=== PATIENT | male | born 1975 | race Caucasian/White ===

== ENCOUNTER 2020-06-10 15:54 | Outpatient (CLI) | payer OTHER, SELFPAY ==
--- NOTE | ~2020-06-10 | XR_ITS ---
XR hip RT min 2V 06/10/2020 16:17 Indication: Acute right hip pain Procedure: 2 views right hip Comparison: No prior studies for comparison. Findings: There is mild osteoarthritis of the right hip. No acute fracture or traumatic malalignment. No significant soft tissue abnormality. No radiopaque foreign bodies. Impression: 1: Mild osteoarthritis of the right hip. Reviewed, dictated and finalized at location B. Impression: 1: Mild osteoarthritis of the right hip.
== END 2020-06-10 15:55 | disposition home or self-care (01) ==
LOC: CHSIMG 16:00
PROVIDERS: PCP Family Medicine; Visit Provider Family Medicine
DX: M25.551 Pain in right hip (principal)
CPT/HCPCS: 73502

== ENCOUNTER 2021-03-31 16:33 | Emergency (ER) | payer OTHER, SELFPAY ==
--- NOTE | ~2021-03-31 | XR_ITS ---
XR soft tissue neck 03/31/2021 17:27 Indication: Neck swelling Procedure: 3 views of the neck soft tissues Comparison: No prior studies for comparison. Findings: No prevertebral soft tissue abnormality. No abnormality of the epiglottis or aryepiglottic folds. No subglottic narrowing. Lung apices are normal. Impression: 1: No significant neck soft tissue abnormality. Reviewed, dictated and finalized at location A. Impression: 1: No significant neck soft tissue abnormality.
[2021-03-31 16:50] VITALS: BP 148/103; PULSE 112; RESP 20; TEMP 36.9; O2SAT 97
--- NOTE | 2021-03-31 17:49 | ED.GENADULT ---
HPI - General Adult General Chief complaint: Unspecified Stated complaint: throat swelling Source: patient History of Present Illness HPI narrative: this is a 45-year-old gentleman with a history of anxiety and depression presents with a sensation of fullness in his throat and neck mainly on the exterior his anterior portion of his neck, the patient did go to a urgent care clinic and was prescribed prednisone, there is no difficulty swallowing no shortness of breath no difficulty swallowing and is airway with no wheezing no audible wheezing no fever chills nausea vomiting no sore throat. Onset (ago): day(s) Location: mouth ( throat) Radiation: neck Relieving factors: none Exacerbating factors: none Associated symptoms: denies other symptoms Related Data Home Medications Medication Instructions Recorded Confirmed alprazolam 0.5 mg tablet 0.5 mg PO DAILY 02/04/20 armodafinil 150 mg tablet 150 mg PO QAM 02/04/20 venlafaxine 150 mg 150 mg PO DAILY 02/04/20 capsule,extended release 24 hr zolpidem 12.5 mg tablet,extended 12.5 mg PO DAILY tablet 02/04/20 release,multiphase Vibrid 30 mg PO DAILY 03/31/21 03/31/21 lithium carbonate 150 mg PO DAILY 03/31/21 03/31/21 Allergies Allergy/AdvReac Type Severity Reaction Status Date / Time No Known Allergies Allergy Verified 04/06/20 09:31 Review of Systems Review of Systems: All systems reviewed & are unremarkable except as noted in HPI and below PMFSH Past Medical History Medical History (Updated 03/31/21 @ 17:54 by Darian Brar MD) Depression Diverticulosis 07/2017 BRAAYN (generalized anxiety disorder) HTN (hypertension) Low back pain Obesity, morbid, BMI 40.0-49.9 Surgical History Surgical History Hx of tonsillectomy Social History Social History Smoking status: Never smoker Tobacco type: cigarettes Alcohol intake: never Substance use: never Substance use type: does not use Gender identity (if verbalized by the patient): Male Exam Const: General: cooperative, healthy appearing, comfortable, no acute distress, well developed, alert, awake and Physically active HENMT: Head: normal to inspection Ears: hearing grossly normal bilaterally General nose exam: Normal external nose present Face and sinus: normal facial exam Mouth: Yes Normal oral and palatal mucosa present, Yes lip normal, Yes tongue normal, Yes oropharynx normal and Yes moist mucous membranes Throat: posterior oropharynx normal, tonsils normal and uvula midline Eyes: General: appearance normal, both eyes and all related structures Neck: Neck: normal visual inspection, full ROM, no lymphadenopathy and no meningeal signs Resp: Effort & Inspection: normal respiratory effort and able to speak in complete sentences Cardio: Jugular venous distension: no JVD Palpation: normal PMI Rate: regular rate Rhythm: regular rhythm GI: Inspection: normal to inspection Auscultation: normal bowel sounds Skin: General skin exam: normal color and no rashes or lesions noted Neuro: General: oriented to person, oriented to place and oriented to time Psych: Appearance: grossly normal and well kempt Mental Status: mental status grossly normal Course Course Emergency Course: Reviewed x-ray findings with patient which were normal and gave patient reassessed reassurance and advised to follow-up with his primary care physician if the sensation persists. Vital Signs Vital signs: Vital Signs Temperature 36.9 C 03/31/21 16:50 Pulse Rate 112 H 03/31/21 16:50 Respiratory Rate 20 03/31/21 16:50 Blood Pressure 148/103 H 03/31/21 16:50 Pulse Oximetry 97 03/31/21 16:50 Temperature 36.9 C 03/31/21 16:50 Pulse Rate 112 H 03/31/21 16:50 Respiratory Rate 20 03/31/21 16:50 Blood Pressure 148/103 H 03/31/21 16:50 Pulse Oximetry 97 03/31/21 16:50 Medi
[2021-03-31 18:15] VITALS: BP 106/103; PULSE 103; RESP 20; O2SAT 98
== END 2021-03-31 18:17 | disposition home or self-care (01) ==
PROVIDERS: Emergency Provider Emergency Medicine; PCP Family Medicine
DX: R09.89 Other specified symptoms and signs involving the circulatory and respiratory systems (principal)
CPT/HCPCS: 70360; 99282; 99283

== ENCOUNTER 2022-12-27 21:42 | Emergency (ER) | payer OTHER, SELFPAY ==
[2022-12-27 21:51] VITALS: BP 163/99; PULSE 98; RESP 20; TEMP 36.6; O2SAT 100
--- NOTE | 2022-12-27 22:15 | ED.URI ---
HPI - URI/Sore Throat General Chief Complaint: Upper Respiratory Infection Stated Complaint: covid Source: patient Mode of arrival: ambulatory Limitations: no limitations History of Present Illness HPI Narrative: 47-year-old male with obesity, generalized anxiety disorder, depression, GERD, diverticulosis, hypertension, chronic low back pain presents to the ER with a 1 day history of -- sore throat -- nasal congestion -- right eye redness -- nonproductive cough -- nausea with multiple episodes of diarrhea. No abdominal pain. No vomiting. -- Fever with chills. Patient did home COVID test today which came back positive. He presents to the ER to get back Paxlovid. The patient had 3 doses of COVID vaccination the last of which was more than 1 year ago. MD elicited complaint: fever, cough, sore throat and nasal congestion Onset (ago): day(s) ( Symptoms started yesterday.) Consistency: constant Severity: moderate Description of mucous: watery Able to tolerate fluids by mouth: Yes Exacerbating factors: nothing Relieving factors: nothing Associated symptoms: fever, chills, nasal congestion, sore throat, cough, nausea and diarrhea Related Data Home Medications Medication Instructions Recorded Confirmed alprazolam 0.5 mg tablet (Xanax) 0.5 mg PO DAILY 02/04/20 03/31/21 armodafinil 150 mg tablet (Nuvigil) 250 mg PO QAM 02/04/20 03/31/21 venlafaxine 150 mg 150 mg PO DAILY 02/04/20 03/31/21 capsule,extended release 24 hr (Effexor XR) zolpidem 12.5 mg tablet,extended 12.5 mg PO DAILY 02/04/20 03/31/21 release,multiphase (Ambien CR) Vibrid 30 mg PO DAILY 03/31/21 03/31/21 lithium carbonate 150 mg capsule 150 mg PO DAILY 03/31/21 03/31/21 Allergies Allergy/AdvReac Type Severity Reaction Status Date / Time No Known Allergies Allergy Verified 04/06/20 09:31 Review of Systems Review of Systems: All systems reviewed & are unremarkable except as noted in HPI and below Constitutional: Constitutional: Reports as per HPI and Reports no additional constitutional complaints Eyes: Comments: Right eye is erythematous without any discharge. No pain. ENT: Reports system reviewed and no additional complaints, except as documented and Reports as per HPI Cardiovascular: Cardiovascular: Reports as per HPI and Reports no additional cardiovascular complaints Respiratory: Respiratory: Reports as per HPI, Reports no additional respiratory complaints and Reports cough Gastrointestinal: Gastrointestinal: Reports as per HPI, Reports no additional gastrointestinal complaints, Reports diarrhea and Reports nausea Genitourinary: Genitourinary: Reports no additional male genitourinary complaints and Reports as per HPI Musculoskeletal: Musculoskeletal: Reports no additional musculoskeletal complaints and Reports as per HPI Integumentary/Breasts: Skin/Breast: Reports system reviewed and no additional complaints, except as docu and Reports as per HPI Neurologic: Reports system reviewed and no additional complaints, except as documented and Reports as per HPI Psychiatric: Psychiatric: Reports no additional psychiatric complaints, Reports as per HPI, Reports anxiety and Reports depression Endocrine: Endocrine: Reports no additional endocrine complaints and Reports as per HPI Hematologic/Lymphatic: Hematologic/Lymphatic: Reports no additional hematologic/lymphatic complaints and Reports as per HPI Allergic/Immunologic: Allergic/Immunologic: Reports no additional allergic/immunologic complaints and Reports as per HPI PMFSH Past Medical History Medical History (Updated 12/27/22 @ 23:25 by Kobi Riggs MD) Depression Diverticulosis 07/2017 BRAYAN (generalized anxiety disorder) HTN (hypertension) Low back pain Obesity, morbid, BMI 40.0-49.9 Surgical History Surgical History Hx of tonsillectomy Social History Social History (Reviewed 12/27/22 @ 22:37 by Kobi Fitzgerald
[2022-12-27 22:44] LABS: Basophils Absolute Auto 0.04 K/mm3 (0.00-0.10); Basophils Percent Auto 0.5 % (0.0-1.0); Eosinophils Absolute Auto 0.24 K/mm3 (0.02-0.50); Eosinophils Percent Auto 3.2 % (1.0-6.0); Hematocrit 42.2 % (40.0-54.0); Hemoglobin 14.4 g/dL (14.0-18.0); Immature Granulocyte Absolute 0.05 K/mm3 (0.00-0.00); Immature Granulocyte Percent A 0.7 % (0.0-0.0); Lymphocytes Absolute Auto 1.88 K/mm3 (1.10-4.50); Lymphocytes Percent Auto 25.1 % (18.0-42.0); Mean Corpuscular HGB Conc 34.1 g/dL (32.0-36.0); Mean Corpuscular Hemoglobin 31.4 pg (27.0-31.0); Mean Corpuscular Volume 92.1 fL (78.0-102.0); Mean Platelet Volume 9.6 fl (8.7-11.0); Monocytes Absolute Auto 0.63 K/mm3 (0.10-0.90); Monocytes Percent Auto 8.4 % (2.0-11.0); Neutrophils Absolute Auto 4.6 K/mm3 (1.7-7.2); Neutrophils Percent Auto 62.1 % (50.0-70.0); Platelet Count Result 260 K/mm3 (150-420); Red Blood Count 4.58 M/mm3 (4.70-6.10); Red Cell Distribution Width 12.6 % (11.6-14.4); White Blood Count 7.5 K/mm3 (4.8-10.8)
[2022-12-27 22:59] LABS: INR 0.9; Partial Thromboplastin Time 26.2 SEC (23.90-30.70); Prothrombin Time 10.2 Seconds (9.50-12.10)
[2022-12-27 23:02] LABS: Lactic Acid Reflex 0.9 mmol/L (0.4-2.0)
[2022-12-27 23:11] LABS: Influenza A QL RT-PCR Negative (Negative); Influenza B QL RT-PCR Negative (Negative); SARS-CoV-2 RNA PCR Positive (Negative)
[2022-12-27 23:11] LABS: Alanine Aminotransferase 42 U/L (16-63); Albumin Level 3.6 g/dL (3.4-5.0); Alkaline Phosphatase 98 U/L (46-116); Anion Gap 7 mmol/L (8-16); Aspartate Amino Transferase 18 U/L (15-37); Bilirubin,Total 0.3 mg/dL (0.00-1.00); Blood Urea Nitrogen 15 mg/dL (7-18); Calcium 8.8 mg/dL (8.5-10.1); Carbon Dioxide 31 mmol/L (21-32); Chloride 105 mmol/L (98-108); Estimated CRCL calculation 120 ml/min; Estimated Glomerular Filt Rate > 60; Glucose 149 mg/dL (70-99); NT Pro B Type Natriuretic Pept < 11 pg/mL (0-125); Osmolality Calculated 299 mOsm/kg (285-295); Potassium 3.8 mmol/L (3.5-5.1); Sodium 143 mmol/L (136-145); Total Protein 7.8 g/dL (6.4-8.2); Troponin I 4.4 ng/L (0.00-60.4)
[2022-12-27 23:12] LABS: RSV RNA, RT-PCR Negative (Negative)
[2022-12-27 23:12] LABS: Lipase 30 U/L (16-77)
[2022-12-27 23:13] LABS: CRP 2.2 mg/dL (0.0-0.9)
[2022-12-27 23:31] VITALS: BP 149/99; PULSE 88; RESP 20; TEMP 36.7; O2SAT 99
== END 2022-12-27 23:35 | disposition home or self-care (01) ==
PROVIDERS: Emergency Provider Internal Medicine Critical Care Medicine
DX: U07.1 COVID-19 (principal); H10.9 Unspecified conjunctivitis; I10 Essential (primary) hypertension; M54.50 Low back pain, unspecified; F41.9 Anxiety disorder, unspecified; F32.A Depression, unspecified; Z79.899 Other long term (current) drug therapy
CPT/HCPCS: 36415; 80053; 83605; 83690; 83880; 84484; 85025; 85610; 85730; 86140; 87637; 99284

== ENCOUNTER 2023-03-20 08:44 | Outpatient (CLI) | payer OTHER, SELFPAY ==
[2023-03-20 09:12] LABS: Device ROOM AIR; HCO3 VBG 24.2 mEq/l (24.0-30.0); PCO2 VBG 40.4 mmHg (42.0-48.0); PO2 VBG 80.5 mmHg (35.0-45.0)
[2023-03-20 09:15] LABS: Appearance Urine Clear (Clear); Bilirubin Urine Negative (Negative); Blood Urine Negative (Negative); Color Urine Light Yellow (Yellow); Glucose Urine UA 3+ (Negative); Ketones Urine Trace (Negative); Leukocyte Esterase Ur Negative LEU/UL (Negative); Nitrate Urine Negative (Negative); Protein Urine Negative (Negative); Specific Grav Ur <= 1.005 (1.010-1.020); Urobilinogen Urine 0.2 mg/dL (0.2-1.0)
--- NOTE | 2023-03-20 09:15 | ECG_ITS ---
Measurements Intervals [place] Rate: 93 P: 31 WA: 158 QRS: -5 QRSD: 112 T: 98 QT: 356 QTc: 445 Interpretive Statements SINUS RHYTHM MODERATE INTRAVENTRICULAR CONDUCTION DELAY [110+ ms QRS DURATION] MODERATE T-WAVE ABNORMALITY, CONSIDER LATERAL ISCHEMIA [-0.1+ mV T-WAVE IN I/aVL/V5/V6] ABNORMAL ECG Electronically Signed On 03-21-2023 11:49:53 CDT by Shamir Sauceda M.D.
[2023-03-20 09:46] LABS: Add Urine Microscopic? YES; Bacteria Urine None seen /hpf; RBC Urine None seen /hpf (0-2); WBC Urine None seen /hpf (0-3)
[2023-03-20 10:04] LABS: Acetone Negative (Negative)
[2023-03-20 13:59] LABS: Alanine Aminotransferase 52 U/L (16-63); Alkaline Phosphatase 142 U/L (46-116); Anion Gap 11 mmol/L (8-16); Aspartate Amino Transferase 14 U/L (15-37); Bilirubin,Total 0.6 mg/dL (0.00-1.00); Blood Urea Nitrogen 18 mg/dL (7-18); Calcium 9.7 mg/dL (8.5-10.1); Carbon Dioxide 25 mmol/L (21-32); Chloride 95 mmol/L (98-108); Cholesterol 196 mg/dL (0-200); Estimated Glomerular Filt Rate > 60; HDL Direct 32 mg/dL (40-60); Osmolality Calculated 291 mOsm/kg (285-295); Potassium 3.7 mmol/L (3.5-5.1); Sodium 131 mmol/L (136-145); Thyroid Stimulating Hormone 2.74 uIU/mL (0.36-3.74); Total Protein 7.8 g/dL (6.4-8.2)
[2023-03-20 14:02] LABS: Glucose 425 mg/dL (70-99); LDL Cholesterol Calculated 55 mg/dL (<130); Triglycerides 546 mg/dL (0-150)
[2023-03-20 14:03] LABS: LDL Cholesterol Direct 87 mg/dL (0-130)
[2023-03-25 06:43] LABS: Vitamin D 25 Hydroxy 19 ng/mL (30-100)
== END 2023-03-20 08:45 | disposition home or self-care (01) ==
PROVIDERS: PCP Nurse Practitioner Family; Visit Provider Nurse Practitioner Family
DX: F41.1 Generalized anxiety disorder (principal); F32.9 Major depressive disorder, single episode, unspecified; I10 Essential (primary) hypertension; E66.01 Morbid (severe) obesity due to excess calories; R63.1 Polydipsia; R94.31 Abnormal electrocardiogram [ECG] [EKG]
CPT/HCPCS: 36415; 80053; 80061; 81001; 82010; 82306; 82803; 83721; 84443; 93005

== ENCOUNTER 2023-03-21 15:42 | Outpatient (CLI) | payer OTHER, SELFPAY ==
[2023-03-21 17:05] LABS: NT Pro B Type Natriuretic Pept < 11 pg/mL (0-125); Troponin I 4.8 ng/L (0.00-60.4)
[2023-03-22 07:08] LABS: Hemoglobin 14.5 g/dL (14.0-18.0); Mean Corpuscular Hemoglobin 31.4 pg (27.0-31.0); Mean Corpuscular Volume 95.2 fL (78.0-102.0); Mean Platelet Volume 10.6 fl (8.7-11.0); Platelet Count Result 300 K/mm3 (150-420); Red Blood Count 4.62 M/mm3 (4.70-6.10); Red Cell Distribution Width 12.9 % (11.6-14.4); White Blood Count 6.1 K/mm3 (4.8-10.8)
[2023-03-22 07:38] LABS: Hemoglobin A1C 11.4 % (<5.7)
== END 2023-03-21 15:43 | disposition home or self-care (01) ==
LOC: CHSLAB 15:44
PROVIDERS: PCP Nurse Practitioner Family; Visit Provider Nurse Practitioner Family
DX: R94.31 Abnormal electrocardiogram [ECG] [EKG] (principal); E66.01 Morbid (severe) obesity due to excess calories; I10 Essential (primary) hypertension; F32.9 Major depressive disorder, single episode, unspecified; F41.1 Generalized anxiety disorder
CPT/HCPCS: 36415; 82553; 83036; 83880; 84484; 85027

== ENCOUNTER 2023-04-21 08:44 | Outpatient (CLI) | payer OTHER, SELFPAY ==
--- NOTE | ~2023-04-21 | MR_ITS ---
MRI of the brain Clinical History: Right-sided facial droop Technique: Axial and sagittal T1-weighted images were acquired. These were followed by axial T2-weigh zach, diffusion weighted, gradient, and FLAIR images. Findings: No abnormal signal seen in the brain parenchyma. No acute infarct, intracranial hemorrhage, or mass lesion. Ventricles and subarachnoid spaces are unremarkable. Orbits are unremarkable. Retention cyst or polyp present in the right maxillary sinus. Remaining paranasal sinuses and mastoid air cells are clear. M ajor intracranial flow voids appear intact. Sagittal midline structures are intact. IMPRESSION: No significant abnormality seen. Reviewed, dictated and finalized at location M.
[2023-04-24 09:51] LABS: Lithium 0.26 mmol/L (0.60-1.20)
== END 2023-04-21 08:45 | disposition home or self-care (01) ==
LOC: CHSIMG 08:45
PROVIDERS: PCP Nurse Practitioner Family; Visit Provider Nurse Practitioner Family
DX: F32.9 Major depressive disorder, single episode, unspecified (principal); F41.1 Generalized anxiety disorder; R29.810 Facial weakness
CPT/HCPCS: 36415; 70551; 80178

== ENCOUNTER 2023-04-23 08:02 | Outpatient (CLI) | payer OTHER, SELFPAY ==
--- NOTE | 2023-04-23 08:07 | ECHO_ITS ---
Patient Info Name: Rod Nolasco Age: 47 years : 1975 Gender: Male Ht: 69 in Wt: 305 lbs BSA: 2.67 m2 HR: 82 bpm BP: 127 / 72 mmHg Technical Quality: Good Exam Date: 04/23/2023 8:15 AM Exam Location: [facility] Patient Status: Outpatient Admit Date: 04/23/2023 Staff Ordering Physician: Parvez Christian APRN Wind Operations Manager: Americo Velasco RDCS Attending Provider: Parvez Christian APRN Exam Type: CA echo doppler color flow Study Info Indications - ABN-EKG Complete two-dimensional, color flow and Doppler transthoracic echocardiogram is performed. Summary 1. Complete two-dimensional, color flow and Doppler transthoracic echocardiogram is performed. 2. Left ventricular chamber dimension is mildly enlarged. 3. Left ventricular systolic function is normal, estimated at 55-60%. 4. There is mild concentric increased left ventricular wall thickness. 5. The left ventricular diastolic function is grade I diastolic dysfunction. 6. E/e' 7 is not elevated. 7. There is trace tricuspid valve regurgitation. 8. No pulmonary hypertension, estimated pulmonary arterial systolic pressure is 9 mmHg. Left Ventricle E/e' 7 is not elevated. Left ventricular chamber dimension is mildly enlarged. Left ventricular systolic function is normal, estimated at 55-60%. There is mild concentric increased left ventricular wall thickness. The left ventricular diastolic function is grade I diastolic dysfunction. Right Ventricle Right ventricular chamber dimension is normal. Right ventricular systolic function is normal. Left Atria Left atrial chamber dimension is normal. Right Atria Right atrial chamber dimension is normal. Aortic Valve The aortic valve is trileaflet. There is no aortic valve stenosis. There is no aortic valve regurgitation. Pulmonic Valve There is no pulmonic regurgitation. Mitral Valve There is no mitral valve stenosis. There is no mitral valve regurgitation. Tricuspid Valve There is trace tricuspid valve regurgitation. No pulmonary hypertension, estimated pulmonary arterial systolic pressure is 9 mmHg. Pericardium/Pleural There is no pericardial effusion. Inferior Vena Cava Normal inferior vena cava with >50% collapse upon inspiration consistent with normal right atrial pressure, 5 mmHg. Aorta The aortic root size at the sinus of Valsalva is normal. Left Ventricular Outflow Tract Name Value Normal LVOT 2D LVOT Diameter 2.2 cm LVOT Doppler LVOT Peak Velocity 100 cm/s LVOT Peak Gradient 4 mmHg LVOT Mean Gradient 2 mmHg LVOT VTI 23 cm LVOT VTI/AV VTI Ratio 0.9 LVOT Stroke Volume 87 ml Pulmonic Valve Name Value Normal RVOT Doppler RVOT Peak Gradient 3 mmHg PV Doppler PV Peak V
== END 2023-04-23 08:03 | disposition home or self-care (01) ==
LOC: CHSIMG 08:03
PROVIDERS: PCP Nurse Practitioner Family; Visit Provider Nurse Practitioner Family
DX: R94.31 Abnormal electrocardiogram [ECG] [EKG] (principal)
CPT/HCPCS: 93306

== ENCOUNTER 2023-05-14 07:45 | Outpatient (CLI) | payer BC, SELFPAY ==
[2023-05-16 10:55] LABS: Lithium 0.24 mmol/L (0.60-1.20)
== END 2023-05-14 07:46 | disposition home or self-care (01) ==
PROVIDERS: PCP Nurse Practitioner Family; Visit Provider Nurse Practitioner Family
DX: F32.9 Major depressive disorder, single episode, unspecified (principal); I10 Essential (primary) hypertension; F41.1 Generalized anxiety disorder
CPT/HCPCS: 36415; 80178

== ENCOUNTER 2023-06-19 09:19 | Outpatient (CLI) | payer BC, SELFPAY ==
[2023-06-19 10:30] LABS: Hemoglobin A1C 6.6 % (<5.7)
[2023-06-19 10:43] LABS: Alanine Aminotransferase 31 U/L (16-63); Albumin Level 3.9 g/dL (3.4-5.0); Alkaline Phosphatase 107 U/L (46-116); Anion Gap 11 mmol/L (8-16); Aspartate Amino Transferase 11 U/L (15-37); Bilirubin,Total 0.3 mg/dL (0.00-1.00); Blood Urea Nitrogen 16 mg/dL (7-18); Calcium 9.1 mg/dL (8.5-10.1); Carbon Dioxide 25 mmol/L (21-32); Chloride 104 mmol/L (98-108); Cholesterol 129 mg/dL (0-200); Estimated Glomerular Filt Rate > 60; Glucose 113 mg/dL (70-99); HDL Direct 42 mg/dL (40-60); LDL Cholesterol Calculated 54 mg/dL (<130); Osmolality Calculated 292 mOsm/kg (285-295); Sodium 140 mmol/L (136-145); Total Protein 7.4 g/dL (6.4-8.2); Triglycerides 164 mg/dL (0-150)
[2023-06-19 10:52] LABS: Thyroid Stimulating Hormone Reflex 2.52 u/IU/mL (0.36-3.74)
[2023-06-21 12:21] LABS: Lithium 0.24 mmol/L (0.60-1.20)
== END 2023-06-19 09:20 | disposition home or self-care (01) ==
LOC: CHSLAB 09:20
PROVIDERS: PCP Nurse Practitioner Family; Visit Provider Nurse Practitioner Family
DX: F32.9 Major depressive disorder, single episode, unspecified (principal); F41.1 Generalized anxiety disorder; E66.01 Morbid (severe) obesity due to excess calories; E78.1 Pure hyperglyceridemia; I10 Essential (primary) hypertension; E11.9 Type 2 diabetes mellitus without complications
CPT/HCPCS: 36415; 80053; 80061; 80178; 83036; 84443

== ENCOUNTER 2023-10-06 09:01 | Outpatient (CLI) | payer BC, SELFPAY ==
[2023-10-06 09:39] LABS: Hemoglobin A1C 5.7 % (<5.7)
[2023-10-11 20:57] LABS: Vitamin D 25 Hydroxy 37 ng/mL (30-100)
== END 2023-10-06 09:02 | disposition home or self-care (01) ==
PROVIDERS: PCP Nurse Practitioner Family; Visit Provider Nurse Practitioner Family
DX: E55.9 Vitamin D deficiency, unspecified (principal); E11.3293 Type 2 diabetes mellitus with mild nonproliferative diabetic retinopathy without macular edema, bilateral
CPT/HCPCS: 36415; 82306; 83036

== ENCOUNTER 2023-11-26 09:56 | Outpatient (CLI) | payer BC, SELFPAY ==
--- NOTE | 2023-11-26 10:15 | EST_ITS ---
Patient Info Name: Rod Nolasco Age: 48 years : 1975 Gender: Male Ht: 69 in Wt: 310 lbs BSA: 2.69 m2 HR: 81 bpm BP: 121 / 79 mmHg Heart Rhythm: Sinus Rhythm Exam Date: 11/26/2023 10:29 AM Exam Location: [facility] Patient Status: Outpatient Admit Date: 11/26/2023 Staff Ordering Physician: Jad Rich DO Attending Provider: Jad Rich DO Exercise Technologist: Liseth Garduno CT Exercise Physician: Jad Rich DO Exam Type: CA stress test treadmill Study Info Indications R06.09 - Other forms of dyspnea A treadmill exercise stress test was performed. Summary 1. 1. Negative Moo exercise stress test for ischemic ST changes by ECG criteria. 2. 2. Reduced functional capacity, achieving 7 METs of workload. 3. 3. Appropriate HR response to exercise. 4. 4. Appropriate HR recovery at 1 minute post exercise. 5. 5. No imaging with stress testing. 6. 6. Patient informed of the above results. Protocol: Moo Stress ECG Details Stage: REST Duration (min): 1 min : 0 sec Speed (mph): 0.0 Grade (%): 0 HR (bpm): 82 SBP (mmHg): 121 DBP (mmHg): 79 METS: --- Stage: REST Duration (min): 5 min : 23 sec Speed (mph): 0.0 Grade (%): 0 HR (bpm): 87 SBP (mmHg): 121 DBP (mmHg): 79 METS: --- Stage: STAGE 1 Duration (min): 1 min : 0 sec Speed (mph): 1.7 Grade (%): 10 HR (bpm): 108 SBP (mmHg): 121 DBP (mmHg): 79 METS: --- Stage: STAGE 1 Duration (min): 2 min : 0 sec Speed (mph): 1.7 Grade (%): 10 HR (bpm): 115 SBP (mmHg): 121 DBP (mmHg): 79 METS: --- Stage: STAGE 1 Duration (min): 3 min : 0 sec Speed (mph): 1.7 Grade (%): 10 HR (bpm): 119 SBP (mmHg): 144 DBP (mmHg): 70 METS: --- Stage: STAGE 2 Duration (min): 1 min : 0 sec Speed (mph): 2.5 Grade (%): 12 HR (bpm): 132 SBP (mmHg): 144 DBP (mmHg): 70 METS: --- Stage: STAGE 2 Duration (min): 2 min : 0 sec Speed (mph): 2.5 Grade (%): 12 HR (bpm): 141 SBP (mmHg): 150 DBP (mmHg): 66 METS: --- Stage: STAGE 2 Duration (min): 2 min : 59 sec Speed (mph): 3.4 Grade (%): 14 HR (bpm): 148 SBP (mmHg): 150 DBP (mmHg): 66 METS: --- Stage: RECOVERY Duration (min): 1 min : 0 sec Speed (mph): 0.0 Grade (%): 0 HR (bpm): 127 SBP (mmHg): 150 DBP (mmHg): 66 METS: --- Stage: RECOVERY Duration (min): 2 min : 0 sec Speed (mph): 0.0 Grade (%): 0 HR (bpm): 109 SBP (mmHg): 150 DBP (mmHg): 66 METS: --- Stage: RECOVERY Duration (min): 3 min : 0 sec Speed (mph): 0.0 Grade (%): 0 HR (bpm): 104 SBP (mmHg): 158 DBP (mmHg): 68 METS: --- Stage: RECOVERY Duration (min): 3 min : 10 sec Speed (mph): 0.0 Grade (%): 0 HR (bpm): 106 SBP (mmHg): 158 DBP (mmHg): 68 METS: --- Rest HR: 87 bpm Peak HR: 148 bpm Rest Sys BP: 121 mmHg Peak Sys BP: 158 mmHg Max Pred HR: 173 bpm % Max Pred HR: 86 % Target HR: 147 bpm Max RPP: 23,384 bpm*mmHg
== END 2023-11-26 09:57 | disposition home or self-care (01) ==
LOC: ANHCARD 09:56
PROVIDERS: PCP Nurse Practitioner Family; Visit Provider Internal Medicine Cardiovascular Disease
DX: R06.09 Other forms of dyspnea (principal)
CPT/HCPCS: 93017

== ENCOUNTER 2024-01-21 07:39 | Outpatient (CLI) | payer BC, SELFPAY ==
[2024-01-21 08:03] LABS: Basophils Absolute Auto 0.04 K/mm3 (0.00-0.10); Basophils Percent Auto 0.4 % (0.0-1.0); Eosinophils Absolute Auto 0.22 K/mm3 (0.02-0.50); Eosinophils Percent Auto 2.4 % (1.0-6.0); Hematocrit 42.4 % (40.0-54.0); Hemoglobin 14.2 g/dL (14.0-18.0); Immature Granulocyte Absolute 0.07 K/mm3 (0.00-0.00); Immature Granulocyte Percent A 0.8 % (0.0-0.0); Lymphocytes Absolute Auto 2.23 K/mm3 (1.10-4.50); Lymphocytes Percent Auto 24.8 % (18.0-42.0); Mean Corpuscular HGB Conc 33.5 g/dL (32-36); Mean Corpuscular Volume 92.6 fL (78.0-102.0); Mean Platelet Volume 9.5 fl (8.7-11.0); Monocytes Absolute Auto 0.61 K/mm3 (0.10-0.90); Monocytes Percent Auto 6.8 % (2.0-11.0); Neutrophils Absolute Auto 5.84 K/mm3 (1.70-7.20); Neutrophils Percent Auto 64.8 % (50.0-70.0); Platelet Count Result 267 K/mm3 (150-420); Red Blood Count 4.58 M/mm3 (4.70-6.10); Red Cell Distribution Width 13.2 % (11.6-14.4)
[2024-01-21 08:11] LABS: Hemoglobin A1C 5.3 % (<5.7)
[2024-01-21 09:16] LABS: Alanine Aminotransferase 44 U/L (16-63); Albumin Level 3.8 g/dL (3.4-5.0); Alkaline Phosphatase 119 U/L (46-116); Anion Gap 7 mmol/L (4-12); Aspartate Amino Transferase 17 U/L (15-37); Bilirubin,Total 0.3 mg/dL (0.00-1.00); Blood Urea Nitrogen 14 mg/dL (7-18); Calcium 8.9 mg/dL (8.5-10.1); Carbon Dioxide 30 mmol/L (21-32); Chloride 103 mmol/L (98-108); Cholesterol 125 mg/dL (0-200); Estimated Glomerular Filt Rate > 60; Folic Acid 6.5 ng/mL (8.6->20); Glucose 112 mg/dL (70-99); HDL Direct 42 mg/dL (40-60); LDL Cholesterol Calculated 58 mg/dL (<130); Osmolality Calculated 291 mOsm/kg (285-295); Potassium 4.1 mmol/L (3.5-5.1); Sodium 140 mmol/L (136-145); Thyroid Stimulating Hormone 2.58 uIU/mL (0.36-3.74); Total Protein 6.9 g/dL (6.4-8.2); Triglycerides 125 mg/dL (0-150); Vitamin B12 1163 pg/mL (193-986)
[2024-01-22 23:28] LABS: FSH 5.3 mIU/mL (1.4-12.8); LH 2.3 mIU/mL (1.5-9.3); Prolactin 7.9 ng/mL (2.0-18.0); Sex Hormone Binding Globulin 18 nmol/L (10-50); Vitamin D 25 Hydroxy 44 ng/mL (30-100)
[2024-01-23 03:34] LABS: Insulin Level Total 40.6 uIU/mL
[2024-01-23 09:14] LABS: Lithium 0.3 mmol/L (0.6-1.2)
[2024-01-25 14:33] LABS: Testosterone Free 39 pg/mL (35.0-155.0); Testosterone Total 222 ng/dL (250-1100)
== END 2024-01-21 07:40 | disposition home or self-care (01) ==
LOC: CHSLAB 07:43
PROVIDERS: PCP Nurse Practitioner Family; Visit Provider Psychiatry & Neurology Psychiatry
DX: F33.2 Major depressive disorder, recurrent severe without psychotic features (principal); N52.9 Male erectile dysfunction, unspecified
CPT/HCPCS: 36415; 80053; 80061; 80178; 82306; 82607; 82746; 83001; 83002; 83036; 83525; 84146; 84270; 84402; 84403; 84443; 85025

== ENCOUNTER 2024-02-01 12:35 | Outpatient (CLI) | payer BC, SELFPAY | END 2024-02-01 12:36 | disposition home or self-care (01) | PROVIDERS: PCP Nurse Practitioner Family; Visit Provider Nurse Practitioner Family | DX: Z12.5 Encounter for screening for malignant neoplasm of prostate (principal) | CPT/HCPCS: 36415; 84153; G0103 ==

== ENCOUNTER 2024-03-01 10:42 | Outpatient (CLI) | payer BC, SELFPAY ==
[2024-03-05 11:42] LABS: Testosterone Free 105.6 pg/mL (35.0-155.0); Testosterone Total 437 ng/dL (250-1100)
== END 2024-03-01 10:43 | disposition home or self-care (01) ==
LOC: CHSLAB 10:43
PROVIDERS: PCP Nurse Practitioner Family; Visit Provider Nurse Practitioner Family
DX: N52.9 Male erectile dysfunction, unspecified (principal)
CPT/HCPCS: 36415; 84402; 84403

== ENCOUNTER 2024-04-25 09:53 | Outpatient (CLI) | payer BC, SELFPAY ==
[2024-04-30 16:03] LABS: Testosterone Free 54.6 pg/mL (35.0-155.0); Testosterone Total 270 ng/dL (250-1100)
== END 2024-04-25 09:54 | disposition home or self-care (01) ==
PROVIDERS: PCP Nurse Practitioner Family; Visit Provider Nurse Practitioner Family
DX: R79.89 Other specified abnormal findings of blood chemistry (principal)
CPT/HCPCS: 36415; 84402; 84403

== ENCOUNTER 2024-06-02 14:06 | Outpatient (CLI) | payer BC, SELFPAY ==
[2024-06-02 14:38] LABS: Urine Cotinine NEGATIVE (Negative)
[2024-06-02 16:43] LABS: Ferritin 94 ng/mL (26-388); Iron 65 ug/dL (65-175)
[2024-06-03 16:09] LABS: Parathyroid Intact 63 pg/mL (16-77)
[2024-06-04 21:50] LABS: H pylori, Urea Breath NOT DETECTED (NOT DETECTED)
== END 2024-06-02 14:07 | disposition home or self-care (01) ==
PROVIDERS: PCP Nurse Practitioner Family; Visit Provider Nurse Practitioner Family
DX: K21.9 Gastro-esophageal reflux disease without esophagitis (principal); Z01.89 Encounter for other specified special examinations; R53.83 Other fatigue
CPT/HCPCS: 80307; 82728; 83013; 83540; 83970

== ENCOUNTER 2024-07-28 08:54 | Outpatient (CLI) | payer BC, SELFPAY ==
[2024-07-28 09:37] LABS: Hematocrit 42.4 % (40.0-54.0); Hemoglobin 14.3 g/dL (14.0-18.0); Mean Corpuscular HGB Conc 33.7 g/dL (32-36); Mean Corpuscular Hemoglobin 31.1 pg (27.0-31.0); Mean Corpuscular Volume 92.2 fL (78.0-102.0); Mean Platelet Volume 10.1 fl (8.7-11.0); Platelet Count Result 266 K/mm3 (150-420); Red Cell Distribution Width 12.9 % (11.6-14.4); White Blood Count 8.3 K/mm3 (4.8-10.8)
[2024-07-28 10:36] LABS: Alanine Aminotransferase 34 U/L (16-63); Albumin Level 3.9 g/dL (3.4-5.0); Alkaline Phosphatase 106 U/L (46-116); Anion Gap 10 mmol/L (4-12); Aspartate Amino Transferase 15 U/L (15-37); Bilirubin,Total 0.3 mg/dL (0.00-1.00); Blood Urea Nitrogen 14 mg/dL (7-18); Calcium 8.8 mg/dL (8.5-10.1); Carbon Dioxide 27 mmol/L (21-32); Chloride 105 mmol/L (98-108); Estimated Glomerular Filt Rate > 60; Glucose 110 mg/dL (70-99); Osmolality Calculated 295 mOsm/kg (285-295); Potassium 4.5 mmol/L (3.5-5.1); Prostate Specific Antigen 0.9 ng/mL (< OR = 4.0); Sodium 142 mmol/L (136-145); Total Protein 7.2 g/dL (6.4-8.2)
== END 2024-07-28 08:55 | disposition home or self-care (01) ==
LOC: CHSLAB 08:56
PROVIDERS: PCP Nurse Practitioner Family; Visit Provider Nurse Practitioner Family
DX: Z12.5 Encounter for screening for malignant neoplasm of prostate (principal); R79.89 Other specified abnormal findings of blood chemistry
CPT/HCPCS: 36415; 80053; 84153; 84402; 84403; 85027; G0103

== ENCOUNTER 2025-05-29 07:39 | Outpatient (CLI) | payer BC, SELFPAY ==
--- OUTSIDE RECORDS SUMMARY | 2025-05-29 07:43 | XMS_ITS | Patient Health Record ---
Author Organization [facility] [employer] Address [address] [facility] [address] [place] [address] Care Team Providers Care Project Management Instructor Name Role Phone Parvez Noe Primary Care Provider Saravanan pacheco Nima Sin Unavailable [phone] Allergies No Known Allergies Results Component Value Reference Range Notes UDT Reviewed date:06/30/2024 05:00:50 PM Interpretation: Performing Lab: Notes/Report: THC N 0 - 50 ng/ml Cocaine N 0 - 300 ng/ml Amphetamine N 0 - 1000 ng/ml Buprenorphine (BUP) N 0 - 10 ng/ml Secobarbital (Bar) N 0 - 300 ng/ml Oxazepam (BZO) P 0 - 300 ng/ml 9-emkixirlku-7,0-pgvyfqbg-7,3-diphenylpyrrolidine (MAURICIO P) N 0 - 300 ng/ml Methamphetamine (MET) N 0 - 1000 ng/ml Methylenedioxymethamphetamine (MDMA) N 0 - 500 ng/ml Morphine (MOP 300/[id number]) N 0 - 300 ng/ml Methadone (MTD) N 0 - 300 ng/ml Phencyclidine (PCP) N 0 - 25 ng/ml Nortriptyline (TCA) N 0 - 1000 ng/ml Oxycodone N 0 - 300 ng/ml x N 0 - 300 ng/ml UDT Reviewed date:10/15/2024 03:06:26 PM Interpretation: Performing Lab: Notes/Report: THC N 0 - 50 ng/ml Cocaine N 0 - 300 ng/ml Amphetamine N 0 - 1000 ng/ml Buprenorphine (BUP) N 0 - 10 ng/ml Secobarbital (Bar) N 0 - 300 ng/ml Oxazepam (BZO) P 0 - 300 ng/ml 7-judyghtkwi-3,4-wumuchpk-6,3-diphenylpyrrolidine (MAURICIO P) N 0 - 300 ng/ml Methamphetamine (MET) N 0 - 1000 ng/ml Methylenedioxymethamphetamine (MDMA) N 0 - 500 ng/ml Morphine (MOP 300/[id number]) N 0 - 300 ng/ml Methadone (MTD) N 0 - 300 ng/ml Phencyclidine (PCP) N 0 - 25 ng/ml Nortriptyline (TCA) N 0 - 1000 ng/ml Oxycodone N 0 - 300 ng/ml x N 0 - 300 ng/ml UDT Reviewed date:03/26/2025 11:34:57 AM Interpretation: Performing Lab: Notes/Report: THC N 0 - 50 ng/ml Cocaine N 0 - 300 ng/ml Amphetamine N 0 - 1000 ng/ml Buprenorphine (BUP) N 0 - 10 ng/ml Secobarbital (Bar) N 0 - 300 ng/ml Oxazepam (BZO) P 0 - 300 ng/ml 4-crsymcwhwh-0,7-pzzgzxgo-5,3-diphenylpyrrolidine (MAURICIO P) N 0 - 300 ng/ml Methamphetamine (MET) N 0 - 1000 ng/ml Methylenedioxymethamphetamine (MDMA) N 0 - 500 ng/ml Morphine (MOP 300/[id number]) N 0 - 300 ng/ml Methadone (MTD) N 0 - 300 ng/ml Phencyclidine (PCP) N 0 - 25 ng/ml Nortriptyline (TCA) N 0 - 1000 ng/ml Oxycodone N 0 - 300 ng/ml Reason For Referral No Information Medications Medication SIG (Take, Route, Frequency, Duration) Notes Start Date End Date Status Rexulti 2 MG Tablet TAKE ONE TABLET BY MOUTH DAILY Active Losartan Potassium 50 MG Tablet Oral; Duration: 30 Days Not-Taking Mounjaro 7.5 MG/0.5ML Solution Pen-injector Subcutaneous; Duration: 28 Days Not-Taking Atorvastatin Calcium 40 MG Tablet Oral; Duration: 30 Days Active Vitamin D (Ergocalciferol) 1.25 MG (68975 UT) Capsule Oral; Duration: 28 Days Not-Taking Armodafinil 250 MG Tablet 1 tablet in the morning Orally Once a day; Duration: 90 days 03/26/2025 Active Testosterone 20.25 MG/ACT (1.62%) Gel PLEASE SEE ATTACHED FOR DETAILED DIRECTIONS Transdermal; Duration: 28 Days Active Venlafaxine HCl ER 150 MG Capsule Extended Release 24 Hour TAKE ONE CAPSULE BY MOUTH EVERY MORNING; Duration: 90 Active Zolpidem Tartrate ER 12.5 MG Tablet Extended Release 1 tablet at bedtime Oral Once a day; Duration: 30 days 05/16/2025 08/13/2025 Active ALPRAZolam 0.5 MG Tablet 1 tablet Oral once a day; Duration: 30 days As needed 03/26/2025 Active [place] Carbonate ER 300 MG Tablet Extended Release 1 tablet at bedtime Oral Once a day; Duration: 90 days dose reduced Active Rexulti 2 MG Tablet 1 tablet Oral Once a day; Duration: 90 days Active Immunizations Vaccine Route Administration Date Status Comme nts DTP Unknown 03/07/1977 Administered DTP Unknown 03/07/1977 Administered DTP Unknown 05/01/1977 Administered DTP Unknown 05/01/1977 Administered DTP Unknown 07/18/1977 Administered DTP Unknown 07/18/1977 Administered DTP Unknown 07/31/1978 Administered DTP Unknown 07/31/1978 Administered DTP Unknown 01/31/1982 Administered DTP Unknown 01/31/1982 Administered Hep B, adolescent or pediatr ic (11-19), 3 dose schedule Unknown 03/20/2000 Administered Hep B, adolescent or pediatr ic (11-19), 3 dose schedule Unknown 03/20/2000 Administered Influenza virus vaccine, quadrivalent (IIV4), split virus, 0.25 mL dosage Unknown 06/21/2020 Administered Influenza, injectable, MDCK, preservative free Unknown 06/26/2016 Administered Influenza, unspecified formulation Unknown 06/26/2016 A dministered Influenza, unspecified formulation Unknown 05/25/2019 A dministered Influenza, unspecified formulation Unknown 06/21/2020 A dministered Measles Unknown 03/28/1978 Administered Measles Unknown 03/28/1978 Administered MMR Unknown 08/23/2004 Administered MMR Unknown 08/23/2004 Administered Novel Ghpmuqkuv-J6H4-67, preservative free Unknown 05/25/2019 Administered OPV Unknown 03/07/1977 Administered OPV Unknown 03/07/1977 Administered OPV Unknown 05/01/1977 Administered OPV Unknown 05/01/1977 Administered OPV Unknown 07/18/1977 Administered OPV Unknown 07/18/1977 Administered OPV Unknown 07/31/1978 Administered OPV Unknown 07/31/1978 Administered OPV Unknown 01/31/1982 Administered OPV Unknown 01/31/1982 Administered Pfizer Biontech Covid-19 Vac cine 2nd dose Unknown 09/26/2020 Administered Pfizer Biontech Covid-19 Vac cine 2nd dose Unknown 10/21/2020 Administered Pfizer Biontech Covid-19 Vac cine 2nd dose Unknown 07/09/2021 Administered Rubella Unknown 02/05/1979 Administered Td (adult), adsorbed Unknown 02/26/1989 Administered Td (adult), adsorbed Unknown 02/26/1989 Administered Td (adult), adsorbed Unknown 02/02/1995 Administered Td (adult), adsorbed Unknown 02/02/1995 Administered Social History Tobacco Use: Social History Observation Description Date Details (start date - stop date) Never Smoker NA - NA Sex Assigned At : Social History Observation Description Sex Assigned At Male Social History Miscellaneous: Social Info Question Answer Notes Advance Care Planning Are you your own decision-maker Yes Do you have Power of Toll Ticket Clerk for Health or [facility]? No Drug/Alcohol: Social Info Question Answer Notes AUDIT-C (Standard) Did you have a drink containing alcohol in the past year? Yes How often did you have six or more drinks on one occasion in the past year? Never (0 point) How many drinks did you have on a typical day when you were drinking in the past year? 1 or 2 drinks (0 point) How often did you have a drink containing alcohol in the past year? Monthly or less (1 point) Tobacco Use: Social Info Question Answer Notes Tobacco Control (Standard) Tobacco use: Nonsmoker Problems Problem Type SNOMED Code ICD Code Onset Dates Problem Status W/U Status Risk Notes Problem Severe recurrent major depression without psychotic features (98840205) Major depressive disorder, recurrent severe without psychotic features (F33.2) 2023 Active confirmed Problem Generalized anxiety disorder (55581534) Generalized anxiety disorder (F41.1) 2023 Active confirmed Problem Obstructive sleep apnea syndrome (disorder) (51005768) Obstructive sleep apnea (adult) (pediatric) (G47.33) 2023 Active confirmed Problem Primary hypertension (96794024) Primary hypertension (I10) 2023 Active confirmed Problem Obstructive sleep apnea (97450794) Obstructive sleep apnea (G47.33) 2023 Active confirmed Problem Hyperlipidemia (43785540) Hyperlipidemia (E78.5) 2023 Active confirmed Problem Hypercholesterolemia (65135458) Hypercholesterolemia (E78.00) 2021 Active confirmed Problem Type II diabetes mellitus without complication (570954552) Type 2 diabetes mellitus without complication, without long-term current use of insulin ([facility]) (E11.9) 2023 Active confirmed Vital Signs Heart Rate 76 /min 03/26/2025 Height-cm 182.88 cm 03/26/2025 Blood pressure diastolic 79 mm Hg 03/26/2025 Weight-kg 121.29 kg 03/26/2025 Height 72.00 in 03/26/2025 Blood pressure systolic 122 mm Hg 03/26/2025 Weight 267.4 lbs 03/26/2025 BMI 36.26 kg/m2 03/26/2025 Encounters Encounter Location Date Provider Diagnosis [facility] [place] [id number] [facility] [address] [address] 06/30/2024 Nima January Major depressive disorder, recurrent severe without psychotic features F33.2 ; Generalized anxiety disorder F41.1 and Obstructive sleep apnea (adult) (pediatric) G47.33 [facility] [place] [address] [facility] [address] [address] 10/15/2024 Nima January Major depressive disorder, recurrent severe without psychotic features F33.2 ; Primary hypertension I10 ; Generalized anxiety disorder F41.1 and Obstructive sleep apnea (adult) (pediatric) G47.33 [facility] [place] [address] [facility] [address] [address] 01/09/2025 Nima January Major depressive disorder, recurrent severe without psychotic features F33.2 ; Primary hypertension I10 ; Generalized anxiety disorder F41.1 ; Obstructive sleep apnea (adult) (pediatric) G47.33 ; Encounter for screening for depression Z13.31 and Encounter for screening for cardiovascular disorders Z13.6 [facility] [place] [facility] [address] [facility] [address] [address] 03/26/2025 Nima January Major depressive disorder, recurrent severe without psychotic features F33.2 ; Primary hypertension I10 ; Generalized anxiety disorder F41.1 ; Obstructive sleep apnea (adult) (pediatric) G47.33 ; Encounter for screening for cardiovascular disorders Z13.6 and Encounter for screening for depression Z13.31 [facility] [employer] [facility] [address] [place] [address] 09/02/2024 Nima January Obstructive sleep ap angelika (adult) (pediatric) G47.33 [facility] [employer] [facility] [address] [place] [address] 06/06/2024 Nima January [facility] [employer] [facility] [address] [place] [address] 12/08/2024 Nima January [facility] [employer] [facility] [address] [facility] [address] [place] [address] 12/08/2024 Nima January Obstructive sleep ap angelika (adult) (pediatric) G47.33 [facility] [employer] [facility] [address] [facility] [address] [place] [address] 05/14/2025 Nima January Obstructive sleep ap angelika (adult) (pediatric) G47.33 [facility] [employer] [facility] [address] [place] [address] 05/15/2025 Nima January Obstructive sleep ap angelika (adult) (pediatric) G47.33 Assessments Encounter Date Diagnosis (ICD Code) Assessment Notes Treatment Notes Treatment Clinical Notes Section Notes 09/02/2024 Obstructive sleep apnea (adult) (pediatric) (ICD-10 - G47.33) 10/15/2024 Major depressive disorder, recurrent severe without psychotic features (ICD-10 - F33.2) 06/30/2024 Major depressive disorder, recurrent severe without psychotic features (ICD-10 - F33.2) Major Depressive Disorder - Assessment: Patient reports improved mood and stable mental state. - Plan: - Continue current medications: Venlafaxine 150 mg daily, Rexulti 2 mg daily, and [place] 300 mg twice a day. - Monitor for any changes in mood or mental state, and adjust medications as needed. Anxiety - Assessment: Patient reports decent anxiety levels. - Plan: - Continue current medication: Xanax 0.5 mg once a day. - Monitor for any changes in anxiety levels, and adjust medications as needed. Sleep Disorder - Assessment: Patient reports persistent sleepiness and tiredness despite normal lab work, including testosterone levels. Patient reports needing to nap for 1-2 hours in the afternoon to function in the evening. - Plan: - Continue current medication: Zolpidem 12.5 mg as needed for sleep. - Monitor for any changes in sleep patterns, and adjust medications as needed. Diabetes - Assessment: Patient reports good control of diabetes and potential reduction in insulin or Levemir use. - Plan: - Primary care physician may consider reducing or discontinuing insulin if A1c remains low. - Encourage continued adherence to diabetes management plan and follow up with primary care physician. Gastric Bypass Surgery - Assessment: Patient is in the process of obtaining approval for gastric bypass surgery. Meeting with surgeon scheduled for July 25. Patient has completed various pre-surgery requirements. - Plan: - Provide ongoing psychiatric follow-up as requested by the surgical team. - Discuss potential changes in medication formulary post-surgery, such as lithium and venlafaxine. - Monitor lithium levels as patient loses weight post-surgery. Medication Refills - Plan: - Confirm 90-day supply for Venlafaxine, Rexulti, and [place]. - Address any discrepancies with the pharmacy regarding medication quantities, particularly for [place]. Follow up in three months or sooner if needed, especially after gastric bypass surgery. Advise patient to inquire about specific post-surgery psychiatric follow-up requirements from the surgical team. 10/15/2024 Primary hypertension (ICD-10 - I10) 12/08/2024 Obstructive sleep apnea (adult) (pediatric) (ICD-10 - G47.33) 01/09/2025 Major depressive disorder, recurrent severe without psychotic features (ICD-10 - F33.2) 01/09/2025 Primary hypertension (ICD-10 - I10) 03/26/2025 Major depressive disorder, recurrent severe without psychotic features (ICD-10 - F33.2) Patient feels okay psychiatrically but struggles with social interactions. Patient considers activities like gardening and spending time with family as antidepressant activities. - Continue current medications for depression. - Consider finding hobbies and social outlets to improve mood. 03/26/2025 Primary hypertension (ICD-10 - I10) 05/14/2025 Obstructive sleep apnea (adult) (pediatric) (ICD-10 - G47.33) 05/15/2025 Obstructive sleep apnea (adult) (pediatric) (ICD-10 - G47.33) 03/26/2025 Generalized anxiety disorder (ICD-10 - F41.1) 01/09/2025 Generalized anxiety disorder (ICD-10 - F41.1) 06/30/2024 Generalized anxiety disorder (ICD-10 - F41.1) Major Depressive Disorder - Assessment: Patient reports improved mood and stable mental state. - Plan: - Continue current medications: Venlafaxine 150 mg daily, Rexulti 2 mg daily, and [place] 300 mg twice a day. - Monitor for any changes in mood or mental state, and adjust medications as needed. Anxiety - Assessment: Patient reports decent anxiety levels. - Plan: - Continue current medication: Xanax 0.5 mg once a day. - Monitor for any changes in anxiety levels, and adjust medications as needed. Sleep Disorder - Assessment: Patient reports persistent sleepiness and tiredness despite normal lab work, including testosterone levels. Patient reports needing to nap for 1-2 hours in the afternoon to function in the evening. - Plan: - Continue current medication: Zolpidem 12.5 mg as needed for sleep. - Monitor for any changes in sleep patterns, and adjust medications as needed. Diabetes - Assessment: Patient reports good control of diabetes and potential reduction in insulin or Levemir use. - Plan: - Primary care physician may consider reducing or discontinuing insulin if A1c remains low. - Encourage continued adherence to diabetes management plan and follow up with primary care physician. Gastric Bypass Surgery - Assessment: Patient is in the process of obtaining approval for gastric bypass surgery. Meeting with surgeon scheduled for July 25. Patient has completed various pre-surgery requirements. - Plan: - Provide ongoing psychiatric follow-up as requested by the surgical team. - Discuss potential changes in medication formulary post-surgery, such as lithium and venlafaxine. - Monitor lithium levels as patient loses weight post-surgery. Medication Refills - Plan: - Confirm 90-day supply for Venlafaxine, Rexulti, and [place]. - Address any discrepancies with the pharmacy regarding medication quantities, particularly for [place]. Follow up in three months or sooner if needed, especially after gastric bypass surgery. Advise patient to inquire about specific post-surgery psychiatric follow-up requirements from the surgical team. 10/15/2024 Generalized anxiety disorder (ICD-10 - F41.1) 10/15/2024 Obstructive sleep apnea (adult) (pediatric) (ICD-10 - G47.33) 06/30/2024 Obstructive sleep apnea (adult) (pediatric) (ICD-10 - G47.33) Major Depressive Disorder - Assessment: Patient reports improved mood and stable mental state. - Plan: - Continue current medications: Venlafaxine 150 mg daily, Rexulti 2 mg daily, and [place] 300 mg twice a day. - Monitor for any changes in mood or mental state, and adjust medications as needed. Anxiety - Assessment: Patient reports decent anxiety levels. - Plan: - Continue current medication: Xanax 0.5 mg once a day. - Monitor for any changes in anxiety levels, and adjust medications as needed. Sleep Disorder - Assessment: Patient reports persistent sleepiness and tiredness despite normal lab work, including testosterone levels. Patient reports needing to nap for 1-2 hours in the afternoon to function in the evening. - Plan: - Continue current medication: Zolpidem 12.5 mg as needed for sleep. - Monitor for any changes in sleep patterns, and adjust medications as needed. Diabetes - Assessment: Patient reports good control of diabetes and potential reduction in insulin or Levemir use. - Plan: - Primary care physician may consider reducing or discontinuing insulin if A1c remains low. - Encourage continued adherence to diabetes management plan and follow up with primary care physician. Gastric Bypass Surgery - Assessment: Patient is in the process of obtaining approval for gastric bypass surgery. Meeting with surgeon scheduled for July 25. Patient has completed various pre-surgery requirements. - Plan: - Provide ongoing psychiatric follow-up as requested by the surgical team. - Discuss potential changes in medication formulary post-surgery, such as lithium and venlafaxine. - Monitor lithium levels as patient loses weight post-surgery. Medication Refills - Plan: - Confirm 90-day supply for Venlafaxine, Rexulti, and [place]. - Address any discrepancies with the pharmacy regarding medication quantities, particularly for [place]. Follow up in three months or sooner if needed, especially after gastric bypass surgery. Advise patient to inquire about specific post-surgery psychiatric follow-up requirements from the surgical team. 01/09/2025 Obstructive sleep apnea (adult) (pediatric) (ICD-10 - G47.33) 03/26/2025 Obstructive sleep apnea (adult) (pediatric) (ICD-10 - G47.33) Patient is currently taking Zolpidem ER for obstructive sleep apnea. - Continue current medication Zolpidem ER for obstructive sleep apnea. Patient reports frustration with weight loss progress after gastric bypass surgery. Patient admits to a sedentary lifestyle and plans to consult healthcare team soon. - Consider increasing physical activity, such as walking 6000 steps a day. - Consult healthcare team for further guidance on diet and exercise. 03/26/2025 Encounter for screening for cardiovascular disorders (ICD-10 - Z13.6) 01/09/2025 Encounter for screening for depression (ICD-10 - Z13.31) 03/26/2025 Encounter for screening for depression (ICD-10 - Z13.31) 01/09/2025 Encounter for screening for cardiovascular disorders (ICD-10 - Z13.6) 10/15/2024 Other Anxiety and Stress Related to Family Issues - Assessment: Patient experiencing anxiety and stress due to family issues, including cnkbmbu-op-hgi's health crisis and financial burden. - Plan: - Continue Venlafaxine ER 150 mg in the morning. - Continue Xanax 0.5 mg as needed for anxiety. - Encourage seeking support from friends, family, or support groups. - Recommend stress management techniques such as deep breathing exercises, meditation, and regular physical activity. - Address specific stressors related to family situation. Mood Stabilization - Plan: - Continue [place] ER 300 mg in the morning and 600 mg at night. - Monitor lithium levels and adjust dosage as needed. - Encourage maintaining a regular sleep schedule and practicing good sleep hygiene. Insomnia - Plan: - Continue Zolpidem ER 12.5 mg as needed for sleep. - Encourage good sleep hygiene practices. Gastric Bypass Surgery Preparation - Plan: - Encourage following prescribed pre-surgery diet and exercise regimen. - Instruct patient to inform surgical team of all current medications, including ER formulations. - Schedule 3-month follow-up appointment post-surgery. - Discuss potential medication adjustments post-surgery, especially for ER formulations. Unspecified Condition Requiring Ruxolitinib - Plan: - Continue Ruxolitinib 2 mg daily. - Monitor response to medication and adjust dosage as needed. - Encourage reporting of any side effects or concerns. Financial Stress and Family Dynamics - Assessment: Patient experiencing financial stress related to parents' debt and considering taking out a mortgage to assist. - Plan: - Encourage seeking financial counseling or resources. - Recommend family therapy or counseling. - Encourage establishing boundaries and prioritizing self-care. - Discuss patient's plan to take out a mortgage and importance of addressing parents' spending habits. 01/09/2025 Other Filomena Guzman, status post gastric sleeve surgery on November 27, 2024, presenting with anxiety, depression, and post-surgical dietary challenges. Post-Bariatric Surgery Adjustment Assessment: Patient underwent gastric sleeve surgery on November 27, 2024. Initial weight was 305 lbs, now down to 277 lbs. Experiencing difficulty swallowing chicken, requiring Zofran use. Reports fatigue, which is expected due to significant calorie reduction (from 3546-7323 to 500-700 calories daily). Next follow-up with surgical team scheduled for February. Plan: - Continue current post-surgical dietary guidelines - Use Zofran as needed for nausea when attempting to eat chicken - Await scheduled follow-up in February for further evaluation, including potential blood work and vitamin level checks Anxiety and Depression Assessment: Patient reports increased anxiety, particularly in the last week, and some depression. These mood changes appear to be related to post-surgical adjustment. No significant impact on work performance noted. Plan: - Continue Rexulti 2 mg - Continue Xanax 0.5 mg tablet once daily for anxiety - Monitor mood changes and adjust treatment as necessary Bipolar Disorder Assessment: Patient is currently stable on lithium therapy. However, due to recent weight loss, there is a potential risk of increased lithium levels. Plan: - Reduce lithium dosage from 900 mg to 600 mg daily - Change to 2 tablets at night instead of current regimen - Monitor for recurrence of suicidal thoughts with dosage reduction - Continue fexofenadine 150 mg - Continue zolpidem ER 12.5 mg - Continue armodafinil as prescribed (last filled on December 08, 2024, sufficient until March 10, 2025) Disclaimer: This note has been transcribed using speech recognition software and serves as a reflection of the patient's visit. While efforts have been made to ensure accuracy, there may be errors, including casing flusher inaccuracies and misspellings of medication names. This document should not be considered a verbatim record, and any discrepancies should be verified with the provider. 03/26/2025 Other Imported from Highlights: <thead><tr> <th style=widt h:400px>At tribute Name (Date Range)</th> <th>Value Range</th> <th>Latest Finding</th > <th>Referen ce Range</th> </tr> </thead> <tbody> <!-- Critical Lab Results First --> <tr> <td style=widt h:400px><s de león class=fw60 0>Chloride </span> (11/07/2024 - 11/27/2024) </td> <td>103 mmol/L to <span class=fw60 0>112 mmol/L (H)</span>< /td> <td><span class=fw60 0>112 mmol/L (H)</span>< /td> <td>97 mmol/L - 110 mmol/L</td> </tr> <tr> <td style=widt h:400px><s de león class=fw60 0>Calcium< /span> (11/07/2024 - 11/28/2024) </td> <td>7.4 mg/dL to 9.7 mg/dL</td> <td><span class=fw60 0>8 mg/dL (L)</span>< /td> <td>8.5 mg/dL - 10.3 mg/dL</td> </tr> <tr> <td style=widt h:400px><s de león class=fw60 0>Hgb</spa n> (11/07/2024 - 11/27/2024) </td> <td>11.8 g/dL to 14.6 g/dL</td> <td><span class=fw60 0>11.8 g/dL (L)</span>< /td> <td>13.0 g/dL - 17.5 g/dL</td> </tr> <tr> <td style=widt h:400px><s de león class=fw60 0>RBC</spa n> (11/07/2024 - 11/27/2024) </td> <td>3.7 to 4.63</td> <td><span class=fw60 0>3.7 (L)</span>< /td> <td>4.0 - 5.5</td> </tr> <tr> <td style=widt h:400px><s de león class=fw60 0>Hct</spa n> (11/07/2024 - 11/27/2024) </td> <td>34.6% to 43.8%</td> <td><span class=fw60 0>34.6% (L)</span>< /td> <td>38.9% - 50.3%</td> </tr> <tr> <td style=widt h:400px><s de león class=fw60 0>WBC</spa n> (11/07/2024 - 11/27/2024) </td> <td>9.5 to <span class=fw60 0>13.6 (H)</span>< /td> <td><span class=fw60 0>10.6 (H)</span>< /td> <td>4.0 - 11.0</td> </tr> <tr> <td style=widt h:400px><s de león class=fw60 0>Hgb A1C</span> (11/07/2024 )</td> <td><span class=fw60 0>5.8% (H)</span>< /td> <td><span class=fw60 0>5.8% (H)</span>< /td> <td>4.0% - 5.6%</td> </tr> <!-- Other Lab Results --> <tr> <td style=widt h:400px>Cr eatinine (11/07/2024 - 11/28/2024) </td> <td>0.97 mg/dL to 1.11 mg/dL</td> <td>1.11 mg/dL</td> <td>0.80 mg/dL - 1.30 mg/dL</td> </tr> <tr> <td style=widt h:400px>Gl ucose (11/07/2024 - 11/28/2024) </td> <td>79 mg/dL to 113 mg/dL</td> <td>79 mg/dL</td> <td>70 mg/dL - 199 mg/dL</td> </tr> <tr> <td style=widt h:400px>BU N (11/07/2024 - 11/28/2024) </td> <td>12 mg/dL to 19 mg/dL</td> <td>13 mg/dL</td> <td>6 mg/dL - 25 mg/dL</td> </tr> <tr> <td style=widt h:400px>So dium (11/07/2024 - 11/28/2024) </td> <td>140 mmol/L to 144 mmol/L</td> <td>142 mmol/L</td> <td>135 mmol/L - 145 mmol/L</td> </tr> <tr> <td style=widt h:400px>CO 2 (11/07/2024 - 11/28/2024) </td> <td>26 mmol/L</td> <td>26 mmol/L</td> <td>22 mmol/L - 32 mmol/L</td> </tr> <tr> <td style=widt h:400px>Po tassium, pl (11/07/2024 - 11/28/2024) </td> <td>4.1 mmol/L to 4.3 mmol/L</td> <td>4.3 mmol/L</td> <td>3.3 mmol/L - 4.9 mmol/L</td> </tr> <tr> <td style=widt h:400px>An ion gap (11/07/2024 - 11/28/2024) </td> <td>6 mmol/L to 12 mmol/L</td> <td>8 mmol/L</td> <td>2 mmol/L - 15 mmol/L</td> </tr> <tr> <td style=widt h:400px>RD W CV (11/07/2024 - 11/27/2024) </td> <td>13.1% to 13.3%</td> <td>13.3%</ td> <td>11.1% - 14.9%</td> </tr> <tr> <td style=widt h:400px>MP V (11/07/2024 - 11/27/2024) </td> <td>9.8 fL to 10.2 fL</td> <td>9.8 fL</td> <td>9.1 fL - 12.3 fL</td> </tr> <tr> <td style=widt h:400px>MC V (11/07/2024 - 11/27/2024) </td> <td>92.5 fL to 94.6 fL</td> <td>93.5 fL</td> <td>81.3 fL - 96.4 fL</td> </tr> <tr> <td [facility] h:400[facility]>eG FR (11/07/2024 - 11/28/2024) </td> <td>82 to 83</td> <td>82</td> <td>90 - 120</td> </tr> <tr> <td style=widt h:400px>Gl ucose, POC (11/27/2024 - 11/28/2024) </td> <td>80 mg/dL to 106 mg/dL</td> <td>92 mg/dL</td> <td>70 mg/dL - 199 mg/dL</td>< /tr></tbody > Plan Of Treatment Next Appt Details Provider Name:Nima Sin , 06/26/2025 02:00:00 PM, [address], [facility], [place], [address], Insurance Providers Payer Name Payer Address Payer Phone Subscriber Number Group Number Insured Name Patient Relationship to Insured Coverage Start Date Coverage End Date [facility] [address] [place] [address] [id number] FILOMENA GUZMAN Self - patient is the insured Medical (General) History Medical History History ICD Code Problems: Body mass index 40+ - severely obese Chronic post-traumatic stress disorder Generalized anxiety disorder Obstructive sleep apnea syndrome Severe recurrent major depression withou t psychotic features , Surgical History Surgery Date(Month/Year) Tonsilectomy/adenoids 09/24/1989 Sinus surgery 09/24/1989 Colonoscopy with biopsy (13800) 12/26/19 19
--- OUTSIDE RECORDS SUMMARY | 2025-05-29 07:43 | XMS_ITS | Clinical Summary ---
Author Organization [facility] Address [address] [place] [address] Care Team Providers Care Migrant Leader Name Role Phone Trey Rubio MD Primary Care Provider Unav ailable Allergies Active Allergy Reactions Criticality Noted Date Comments Lisinopril Cough 10/28/2021 Medications ALPRAZolam 0.5 MG tablet Take 0.5 mg by mouth 2 (two) times daily as needed. 10/18/2021 Active REXULTI 2 MG tablet Take 2 mg by mouth daily. for 30 days 10/10/2021 Active lithium CR 300 MG tablet TAKE 1 TABLET BY MOUTH IN THE MORNING AND TAKE 2 TABLETS BY MOUTH AT BEDTIME 10/18/2021 Active venlafaxine XR 150 MG 24 hr capsule Take 150 mg by mouth every morning. 08/21/2021 Active zolpidem CR 12.5 MG tablet Take 12.5 mg by mouth daily. 10/17/2021 Active Armodafinil (NUVIGIL) 150 MG TabIndications:I nsomnia, unspecified type Take 150 mg by mouth every morning. 02/01/2022 Active Active Problems Problem Noted Date Diagnosed Date Hypercholesterolemia 02/01/2022 Elevated blood sugar 02/01/2022 Insomnia, unspecified type 02/01/2022 Mixed hyperlipidemia 10/28/2021 Immunizations Immunization Administration Dates Next Due Attenuvax Sc 03/28/1978 Dtp (Generic) 01/31/1982, 8,07/18/1977,05/01/1977,1976 Hepatitis B Pediatric 03/20/2000 Influenza (Generic) 06/21/2020 Influenza Adult (Generic) 05/25/2019,06/26/2016 MMR (MMRII) 08/23/2004 Polio Opv (Generic) 01/31/1982, 8,07/18/1977,05/01/1977,1976 Td (TDVAX) 02/02/1995,02/26/1989 Family History Medical History Relation Comments skin cancer Father Lung Cancer Maternal Grandfather Breast Cancer Maternal Grandmother Diabetes Mother Hypertension Mother Relation Status Comments Father Maternal Grandfather Maternal Grandmother Mother Social History Tobacco Use Types Packs/Day Years Used Date Smoking Tobacco: Never Smokeless Tobacco: Never Tobacco Cessation:Counseling Given: No Alcohol Use Standard Drinks/Week Comments Yes 0 (1 standard drink = 0.6 oz pur e alcohol) socially PHQ-2 Answer Date Recorded PHQ-2 Score - If the patient scores above 3, please move on to questions 3-9 4 02/01/2022 Sex and Gender Information Value Date Recorded Sex Assigned at Not on file Legal Sex Male 7:38 PM CDT Gender Identity Male 10/28/2021 4:32 AM CARDIOLOGY ASSOCIATE Sexual Orientation Chauhan 10/28/2021 4: 32 AM CARDIOLOGY ASSOCIATE Last Filed Vital Signs Vital Sign Reading Time Taken Comments Blood Pressure 137/77 02/01/2022 1:46 PM CDT Pulse 91 02/01/2022 1:46 PM CDT Temperature 36.7 C (98.1 F) 02/01/2022 1:46 PM CDT Respiratory Rate 16 10/28/2021 8:35 AM CARDIOLOGY ASSOCIATE Oxygen Saturation 98% 02/01/2022 1:46 PM CDT Inhaled Oxygen Concentration - - Weight 147.4 kg (325 lb) 02/01/2022 1:46 PM CDT Height 175.3 cm (5' 9) 10/28/2021 8:35 AM CARDIOLOGY ASSOCIATE Body Mass Index 47.99 10/28/2021 8:35 AM CARDIOLOGY ASSOCIATE Plan of Treatment Health Maintenance Due Date Last Done Comments Colorectal Cancer Screening Colonoscopy (10 Years) 1976 Annual Physical 11/24/1979 Hepatitis C 1994 DTaP, Tdap and Td Vaccines (6 - Tdap) 02/03/1995 02/02/1995, 02/26/1989, 01/31/1982, Additional history exists Hepatitis B Vaccines (1 of 3 - 19+ 3-dose series) 11/24/1995 03/20/2000 COVID-19 Vaccine ( season) 2024 07/09/2021, 10/21/2020, 09/26/2020 Meningococcal B Vaccine Aged Out No l onger eligible based on patient's age to complete this topic Meningococcal Vaccine Aged Out No sanjuana vinicius eligible based on patient's age to complete this topic Pneumococcal Vaccine: Pediatrics (0 to 5 Years) and At-Risk Patients (6 to 49 Years) Aged Out No longer eligible based on patient's age to complete this topic RSV Immunizations Under 20 Months Aged Out No longer eligible based on patient's age to complete this topic Insurance AET[employer] Care Teams Migrant Leader Relationship Specialty Start Date End Date Trey Rubio MD PCP - General FAMILY PRACTICE 10/07/21
--- OUTSIDE RECORDS SUMMARY | 2025-05-29 07:43 | XMS_ITS | Clinical Summary ---
Author Organization [facility] Address [address] [place] [address] Phone Care Team Providers Care Coke Worker Name Role Phone Padma Cantrell MD Primary Care Provider [phone] Allergies No known active allergies Medications ibuprofen (MOTRIN) 800 mg tablet Take 800 mg by mouth every 6 hours as needed for Pain, Mild. Active zolpidem (AMBIEN CR) 12.5 mg Controlled Release tabletIndicatio ns:insomnia Take 12.5 mg by mouth daily at bedtime. Active ALPRAZolam (XANAX) 0.5 mg tablet Take 0.5 mg by mouth. 07/29/2016 Active armodafiniL (NUVIGIL) 250 mg tablet TAKE 1 TABLET BY MOUTH EVERY DAY IN THE MORNING 01/20/2020 Active escitalopram oxalate (LEXAPRO) 10 mg tablet TAKE 1 TABLET BY MOUTH EVERY DAY IN THE MORNING 01/09/2020 Active lisinopriL (PRINIVIL) 10 mg tablet TAKE 1 TABLET BY MOUTH EVERY DAY 02/04/2020 Active metroNIDAZOLE (METROGEL) 1 % Gel APPLY TO AFFECTED AREA EVERY DAY 02/04/2020 Active venlafaxine (EFFEXOR XR) 150 mg Extended Release 24 hour capsule 10/07/2015 Active Active Problems Problem Noted Date Diagnosed Date Acute sinusitis 01/19/2015 Major depressive disorder, r ecurrent, severe without psychotic features 01/18/2015 Low back pain 12/13/2014 Migraine 12/13/2014 Anxiety 12/13/2014 Plantar fascia rupture 12/13/2014 Routine general medical exam ination at a health care facility 12/13/2014 Major depressive disorder, recurrent episode, un specified 12/13/2014 Family History Medical History Relation Name Comments Healthy Father Healthy Mother Relation Name Status Comments Father Mother Social History Tobacco Use Types Packs/Day Years Used Date Smoking Tobacco: Never Alcohol Use Standard Drinks/Week Comments No 0 (1 standard drink = 0.6 oz pur e alcohol) Sex and Gender Information Value Date Recorded Sex Assigned at Not on file Legal Sex Male 9:54 AM CDT Gender Identity Not on file Sexual Orientation Not on file Last Filed Vital Signs Vital Sign Reading Time Taken Comments Blood Pressure 122/70 02/20/2020 1:07 PM CDT Pulse 108 02/20/2020 1:07 PM CDT Temperature 36.6 C (97.8 F) 01/24/2015 7:00 AM CDT Respiratory Rate 18 01/24/2015 7:00 AM CDT Oxygen Saturation 97% 02/20/2020 1:07 PM CDT RA Inhaled Oxygen Concentration - - Weight 142 kg (313 lb) 02/20/2020 1:07 PM CDT Height 177.8 cm (5' 10) 02/20/2020 1:07 PM CDT Body Mass Index 44.91 02/20/2020 1:07 PM CDT Plan of Treatment Health Maintenance Due Date Last Done Comments DTAP/TDAP/TD VACCINES (1 - Tdap) 11/24/1995 HEPATITIS B VACCINES (1 of 3 - 19+ 3-dose series) 10/1995 COLORECTAL SCREENING 2021 Colorectal Cancer Screening 2021 FIT-DNA Q 3 years 2021 FIT/FOBT Q 1 year 2021 Flex Sig/CT Colonography Q 5 years 2021 INFLUENZA VACCINE (#1) 2025 Advance Directives For more information, please contact: [phone] * Full Code (Latest Code Status on File) Date Activated Date Inactivated Comments 01/18/2015 9:22 PM 01/24/2015 11:23 PM * Full Code Date Activated Date Inactivated Comments 12/14/2014 12:19 AM 12/18/2014 4:30 PM * Full Code Date Activated Date Inactivated Comments 12/12/2014 6:52 PM 12/14/2014 12:19 AM Care Teams Coke Worker Relationship Specialty Start Date End Date Padma Cantrell MD [address] [place] [id number] PCP - General Surgery 12/12/14
--- OUTSIDE RECORDS SUMMARY | 2025-05-29 07:43 | XMS_ITS | Clinical Summary ---
Author Organization [facility] Address [address] [place] [address] Care Team Providers Care Sweater Designer Name Role Phone ChristianParvez cintron ELISA Primary Care Provider [phone] Allergies Active Allergy Reactions Criticality Noted Date Comments Lisinopril Cough Low 10/28/2021 Medications armodafinil (NUVIGIL) 250 mg tabletIndication s:Sleepiness Due To Obstructive Sleep Apnea Take 1 tablet (250 mg total) by mouth daily before dinner Active zolpidem CR (AMBIEN CR) 12.5 mg CR tabletIndication s:Insomnia Take 1 tablet (12.5 mg total) by mouth nightly Active ALPRAZolam (XANAX) 0.5 mg tablet Take 1 tablet (0.5 mg total) by mouth 2 (two) times a day as needed for anxiety Active atorvastatin (LIPITOR) 40 mg tablet Take 1 tablet (40 mg total) by mouth nightly 4 Active Rexulti 2 mg tabletIndication s:Depression Treatment Adjunct Take 1 tablet (2 mg total) by mouth nightly 2 Active lithium ER (LITHOBID) 300 mg CR tablet Take 1 tablet (300 mg total) by mouth 2 (two) times a day 2 Active TRUEplus Pen Needle 31 gauge x /4 needle 4 Active tadalafiL (CIALIS) 5 mg tablet Take 1 tablet (5 mg total) by mouth daily as needed for erectile dysfunction 5 Active testosterone cypionate (DEPO-TESTOTERON E) 100 mg/mL injection Inject 1 mL (100 mg total) into the muscle as instructed every 14 (fourteen) days 5 Active magnesium gluconate (MAGONATE) 500 mg (27 mg elemental) tabletIndication s:hypomagnesemia Take 1 tablet (500 mg total) by mouth nightly Active acetaminophen (TYLENOL) 500 mg tablet Take 1 tablet (500 mg total) by mouth every 6 (six) hours as needed for pain Active cyclobenzaprine (FLEXERIL) 10 mg tabletIndication s:Muscle Spasm Take 1 tablet (10 mg total) by mouth every 8 (eight) hours Post surgery: Every 8 hours for 4 days 12 tablet 5 Active Additional Information Patient taking differently:10 mg oralAs needed, Post surgery: Every 8 hours for 4 days, Indications: Muscle Spasm, Informant: Self, Reported on 04/24/2025 cyanocobalamin (Vitamin B-12) 500 mcg tabletIndication s:Prevention of Vitamin B12 Deficiency Take 1 tablet (500 mcg total) by mouth daily Start taking post op day 5 90 tablet 3 5 11/12/19 26 Active calcium citrate-vitamin D3 200 mg-6.25 mcg (250 unit) tabletIndication s:Hypocalcemia Prevention Take 2 tablets by mouth 3 (three) times a day Start taking post op day 5 540 tablet 3 5 11/12/19 26 Active ursodioL (ACTIGALL) 300 mg capsuleIndicatio ns:Cholelithiasi s Prevention Take 1 capsule (300 mg total) by mouth 2 (two) times a day Start post-surgery 180 capsule 1 5 Active polyethylene glycol (MIRALAX) 17 gram/dose bulk powderIndication s:constipation Take 17 g by mouth 2 (two) times a day Start post-surgery 1020 g 5 Active multivitamin with minerals tablet Take 2 tablets by mouth daily Start taking post op day 5 60 tablet 11 5 11/12/19 26 Active oxyCODONE (ROXICODONE) 5 mg immediate release tabletIndication s:Pain Take 1 tablet (5 mg total) by mouth every 6 (six) hours as needed for pain for up to 10 doses 10 tablet 5 Active venlafaxine XR (EFFEXOR-XR) 150 mg 24 hr capsule Active Active Problems Problem Noted Date Diagnosed Date Hypersomnia, recurrent 04/24/2025 Status post bariatric surgery 12/03/2024 Diabetes mellitus 01/04/2024 Hypertension 01/04/2024 Hyperlipidemia 01/04/2024 Obstructive sleep apnea 01/04/2024 Assessment & Plan (04/24/2025 11:46 AM CDT): 1. Chronic, poorly controlled with respect to persistent symptoms 2. Will get connected to his machine for monitoring purposes and to change his settings as needed 3. He will continue Ambien and are modafinil in the meantime CHF (congestive heart failure) Resolved Problems Problem Noted Date Diagnosed Date Resolved Date Morbid (severe) obesity due to excess calories 11/27/2024 12/03/2024 Morbid obesity 08/14/2024 01/06/2025 BMI 45.0-49.9, adult 11/01/2023 025 Encounters Date Type Department Care Team Description 04/24/2025 10:45 AM CDT Office Visit [address] [address] Ervin Nowak MD Obstructive sleep apnea (Primary Dx) 04/15/[address] [place] [address] Ervin Nowak MD 04/14/2025 10:00 AM CDT Telemedicine [facility] [address] [place] [address] Medical Office Building [address] [place] [address] Arash Bass NP Bariatric surgery status (Primary Dx); Other specified intestinal malabsorption; BMI 38.0-38.9,adult; Obstructive sleep apnea from Last 3 Months Surgical History Surgery Date Site/Laterality Comments TONSILLECTOMY ADENOIDECTOMY COLONOSCOPY SINUS SURGERY TYMPANOSTOMY TUBE PLACEMENT KIDNEY STONE SURGERY Medical History Medical History Date Comments Hypertension Depression Anxiety Chronic constipation all my life Type 2 diabetes mellitus 04/2023 Diverticulitis of colon 2019 Hypercholesteremia 04/2023 Morbid obesity (HCC) 1995 Sleep apnea 2020 Vitamin D deficiency Abnormal ECG 04/2023 Diabetes mellitus (HCC) 04/2023 Kidney stone CHF (congestive heart failure) ([facility]) Awareness under anesthesia recal ls waking up during PE tubes as a child Motion sickness Inflammatory bowel disease Headache Eczema Anxiety Covid-19 10/03/2021 Family History Medical History Relation Name Comments Sleep apnea Father Amrit Nolasco Diabetes Mother Cece Nolasco Sleep apnea Mother Cece Nolasco Anesthesia problems Neg Hx Malig Hyperthermia Neg Hx Pseudochol deficiency Neg Hx Relation Name Status Comments Father Amrit Nolasco Mother Cece Nolasco Social History Tobacco Use Types Packs/Day Years Used Date Smoking Tobacco: Never Passive Smoke Exposure: Never Smokeless Tobacco: Never Tobacco Cessation:Counseling Given: Not Answered Alcohol Use Standard Drinks/Week Comments No 0 (1 standard drink = 0.6 oz pur e alcohol) AUDIT-C Answer Date Recorded Q1: How often do you have a drink containing alc ohol? Monthly or less 12/03/2024 Q2: How many drinks containi ng alcohol do you have on a typical day when you are drinking? 1 or 2 12/03/2024 Q3: How often do you have si x or more drinks on one occasion? Never 12/03/2024 Personal Safety Answer Date Recorded Have you ever been in or are you currently in a harmful physical or emotional relationship or is someone making you feel afraid or unsafe? Denies 11/27/2024 Sex and Gender Information Value Date Recorded Sex Assigned at Not on file Legal Sex Male 7:06 PM VAMP LINER Gender Identity Not on file Sexual Orientation Not on file Obstetrics History Last Filed Vital Signs Vital Sign Reading Time Taken Comments Blood Pressure 126/80 04/24/2025 10:36 AM CDT Pulse 76 04/24/2025 10:36 AM CDT Temperature 36.6 C (97.8 F) 12/03/2024 8:35 AM CDT Respiratory Rate 20 11/28/2024 12:40 PM VAMP LINER Oxygen Saturation 98% 04/24/2025 10:36 AM CDT Inhaled Oxygen Concentration - - Weight 120.7 kg (266 lb) 04/24/2025 10:36 AM CDT Height 177.8 cm (5' 10) 04/24/2025 10:36 AM CDT Body Mass Index 38.17 04/24/2025 10:36 AM CDT Plan of Treatment Health Maintenance Due Date Last Done Comments Albumin Creatinine Ratio, Urine 1976 Colon Cancer Screening-Colonoscopy 1976 Depression Screening 1976 Hepatitis C Screening 1976 Dilated Eye Exam 1976 Foot Exam 1976 Regular Well Visit/Exam 18-64 1994 DTaP/Tdap/Td Vaccine (6 - Tdap) 02/03/1995 02/02/1995, 02/26/1989, 01/31/1982, Additional history exists Pneumococcal vaccine <65 (1 of 2 - PCV) 11/24/1995 Lipid Panel 12/01/2018 12/01/2017 Hemoglobin A1C 05/07/2025 11/07/2024 Influenza Vaccine (#1) 2025 , 05/25/2019, 06/26/2016 eGFR 11/27/2025 11/27/2024, 03/0 02/2025, 11/07/2024, Additional history exists Hepatitis B Screening Completed 03/20/2000 Medical Devices Implanted Type Area Legal Transcriptionist Device Identifier Shelf Expiration Date Model / Serial / Lot [employer] Biological Bariatric Peristrip Non Crosslinked Bovine Pericardium For Endo Breann Thin [id number] - Sn/A - [id number] Implanted:Qty: 1 on 11/27/2024 by Candelario Roberts MD at [facility] Other - see comments N/A: Abdomen [employer] [id number] 02/08/2026 [id number] ATHN / N/A / [id number] Description:Tashia-strips dry staple line reinforcement [employer] Biological Bariatric Peristrip Non Crosslinked Bovine Pericardium For Endo Breann Thin [id number] - Sn/A - [id number] Implanted:Qty: 1 on 11/27/2024 by Candelario Roberts MD at [facility] Other - see comments N/A: Abdomen [employer] [id number] 02/08/2026 [id number] ATHN / N/A / [id number]- [id number] Description:[employer]ashia-strips dry staple line reinforcement Procedures Procedure Name Priority Date/Time Associated Diagnosis Comments EGFR STAT 11/27/2024 6:08 PM VAMP LINER HEMOGLOBIN A1C Routine 11/07/2024 3:22 PM VAMP LINER Preoperative testing from Last 3 Months or Most Recently Relevant to Health Maintenance Results * eGFR (11/27/2024 6:08 PM VAMP LINER) eGFR 83 >=60 mL/min/1. 73 m2 Comment: Interpretive Data Reference Interval Normal >/= 90 mL/min/1.73m2 Mildly decreased* 60 - 89 mL/min/1.73m2 Mildly to moderately decreased 45 - 59 mL/min/1.73m2 Moderately to severely decreased 30 - 44 mL/min/1.73m2 Severely decreased 15 - 29 mL/min/1.73m2 Kidney Failure < 15 mL/min/1.73m2 *Relative to young adult level Estimated glomerular filtration rate is determined by the 2020 CKD-EPI equation recommended by the National Kidney Foundation (A Unifying Approach to GFR Estimation: Recommendations of the NKF-ASK Task Force on Reassessing the Inclusion of Race in Diagnosing Kidney Disease, JASN 2020). The CKD-EPI equation should not be used for patients with unstable renal function and has not been validated in children and those over 70. Current interpretive data was last reviewed 2021. Blood 11/27/2024 6:08 PM VAMP LINER 11/27/2024 6:24 PM VAMP LINER us Candelario Roberts MD LAB BLOOD ORDERABLES Final Resu lt [facility] Department [place] [address] * (ABNORMAL) Hemoglobin A1c (11/07/2024 3:22 PM VAMP LINER) Hgb A1C 5.8(H) 4.0 - 5.6 % Estimated Average Glucose 120 mg/dL KATE IVAN Comment: The ADA recommends reporting an estimated Average Glucose (eAG) with all Hemoglobin A1c results using the equation derived from a study of 507 normal and diabetic adults. Minority populations were underrepresented and children were not included. (Diabetes Care 31:2138-1783, 2008). The eAG is not equivalent to a fasting glucose. Blood 11/07/2024 3:22 PM VAMP LINER 11/07/2024 4:10 PM VAMP LINER us Kavita Mcleod NP LAB BLOOD ORDERABLES Fin al Result Performing Organization Address City/State/[facility] md Phone Number [facility] [address] [facility] [place] [address] from Last 3 Months or Most Recently Relevant to Health Maintenance Insurance [facility] PL[facility] H[facility]/PPO Address: [address] [address] [place] [address] [facility] BLUE ACCESS [place] Advance Directives For more information, please contact: [phone] * Full Code (Latest Code Status on File) Date Activated Date Inactivated Comments 11/27/2024 4:19 PM 11/28/2024 6:43 PM Care Teams Sweater Designer Relationship Specialty Start Date End Date Parvez Christian NP [address] [place], [place] [id number] PCP - General Family Medicine 11/28/24
--- OUTSIDE RECORDS SUMMARY | 2025-05-29 07:43 | XMS_ITS | Encounter Summary ---
Author Organization [facility] Address [address] [place] [address] Phone Care Team Providers Care Consulting Solution Director Name Role Phone Padma Cantrell MD Primary Care Provider [phone] Unknown, Notinfile Primary Care Provider Unavail able Parvez Christian NP Primary Care Provider [phone] Encounter Details Date Type Department Care Team (Latest Contact Info) Description 04/10/2023 Orders Only CAR IM EML Scanning, Provider Social History Tobacco Use Types Packs/Day Years Used Date Smoking Tobacco: Never Smokeless Tobacco: Never Alcohol Use Standard Drinks/Week Comments No 0 (1 standard drink = 0.6 oz pur e alcohol) Sex and Gender Information Value Date Recorded Sex Assigned at Not on file Legal Sex Male 7:06 PM DOMESTIC CLEANER Gender Identity Not on file Sexual Orientation Not on file documented as of this encounter Plan of Treatment Not on file documented as of this encounter Procedures Procedure Name Priority Date/Time Associated Diagnosis Comments PROCEDURE - RESULT 04/10/2023 documented in this encounter Results * PROCEDURE - RESULT (04/10/2023) us Provider Scanning Final Result documented in this encounter Visit Diagnoses Not on filedocumented in this encounter Care Teams Consulting Solution Director Relationship Specialty Start Date End Date Padma Cantrell MD [address] [place] [address] PCP - General 08/20/17 11/23/24 Unknown, Notinfile PCP - General 11/24/24 11/27/24 Parvez Christian NP [address] [id number] PCP - General Family Medicine 11/28/24 documented as of this encounter
--- OUTSIDE RECORDS SUMMARY | 2025-05-29 07:43 | XMS_ITS | Patient Health Record ---
Author Organization [facility] Address [address] [place], [place] [id number] Care Team Providers Care Data Management Specialist Name Role Phone FLORENCE KEITH Unavailable [phone] Padma Cantrell Unavailable Unavailable Reason For Referral No Information Medications Medication SIG (Take, Route, Frequency, Duration) Notes Start Date End Date Status Ibuprofen 800 MG Oral Tablet ORAL ibuprofen 800 MG Oral TabletOriginal Medicationibuprofen 800 MG Oral Tablet *Reorder from [employer]volve for eRx and Interaction Alerts* 10/09/2014 Active Plan Of Treatment No Information Insurance Providers Payer Name Payer Address Payer Phone Subscriber Number Group Number Insured Name Patient Relationship to Insured Coverage Start Date Coverage End Date Aetna [address] [place] [phone] [id number] FILOMENA GUZMAN Self - patient is the insured
[2025-05-29 07:59] LABS: Hematocrit 43.1 % (40.0-54.0); Hemoglobin 14.3 g/dL (14.0-18.0); Immature Granulocyte Percent A 0.3 % (0.0-0.0); Lymphocytes Absolute Auto 2.20 K/mm3 (1.10-4.50); Mean Corpuscular HGB Conc 33.2 g/dL (32-36); Mean Corpuscular Hemoglobin 32.4 pg (27.0-31.0); Mean Corpuscular Volume 97.5 fL (78.0-102.0); Nucleated Red Blood Cells Absolute Auto 0.00 K/mm3 (0.00-0.00); Nucleated Red Blood Cells Perc 0.0 % (0-0.0); Platelet Count Result 240 K/mm3 (150-420); Red Blood Count 4.42 M/mm3 (4.70-6.10); White Blood Count 5.9 K/mm3 (4.8-10.8)
[2025-05-29 08:06] LABS: Hemoglobin A1C 5.5 % (<5.7)
[2025-05-29 08:11] LABS: MALB Creatinine Ratio 12.4 mg/g (0-30)
[2025-05-29 08:31] LABS: Alanine Aminotransferase 25 U/L (6-50); Albumin Level 4.4 g/dL (3.5-5.1); Alkaline Phosphatase 91 U/L (38-126); Anion Gap 9 mmol/L (4-12); Aspartate Amino Transferase 23 U/L (17-59); Bilirubin,Total 0.5 mg/dL (0.2-1.3); Blood Urea Nitrogen 14 mg/dL (9-20); Calcium 9.5 mg/dL (8.4-10.2); Carbon Dioxide 30 mmol/L (22-30); Chloride 102 mmol/L (98-107); Cholesterol 164 mg/dL (0-200); Estimated Glomerular Filt Rate > 60; Glucose 97 mg/dL (65-110); HDL Direct 52 mg/dL; Osmolality Calculated 292 mOsm/kg (285-295); Potassium 4.7 mmol/L (3.4-5.0); Sodium 141 mmol/L (137-145); Total Protein 7.0 g/dL (6.3-8.2); Triglycerides 102 mg/dL (<150)
[2025-05-29 09:01] LABS: Thyroid Stimulating Hormone Reflex 1.560 uIU/mL (0.465-4.68)
[2025-05-29 11:09] LABS: Vitamin B12 431.0 pg/mL (239-931)
[2025-06-06 10:08] LABS: Free Testosterone (Direct) 7.3 pg/mL (6.8-21.5)
== END 2025-05-29 07:40 | disposition home or self-care (01) ==
LOC: CHSLAB 07:40
PROVIDERS: PCP Nurse Practitioner Family; Visit Provider Internal Medicine Cardiovascular Disease
DX: Z00.00 Encounter for general adult medical examination without abnormal findings (principal); R53.82 Chronic fatigue, unspecified; E55.9 Vitamin D deficiency, unspecified; E11.3293 Type 2 diabetes mellitus with mild nonproliferative diabetic retinopathy without macular edema, bilateral; E78.1 Pure hyperglyceridemia
CPT/HCPCS: 36415; 80053; 80061; 82043; 82306; 82607; 83036; 84402; 84403; 84443; 85025

== ENCOUNTER 2025-07-14 16:23 | Outpatient (CLI) | payer BC, SELFPAY ==
--- NOTE | ~2025-07-14 | XR_ITS ---
XR lumbar spine 2-3V Indication: M54.5 - Low back pain Comparison: None Findings: The vertebral heights are intact. No fracture or subluxation. Severe loss of disc at L5-S1. Soft tissues unremarkable Impression: No acute abnormality. Reviewed, dictated and finalized at location P. Impression: No acute abnormality.
--- OUTSIDE RECORDS SUMMARY | 2025-07-14 19:46 | XMS_ITS | Patient Health Record ---
Author Organization [facility] [employer] Address [address] [place] [address] Care Team Providers Care Laundry Assistant Name Role Phone Parvez Noe Primary Care Provider Saravanan pacheco Nima Sin Unavailable [phone] Allergies No Known Allergies Results Component Value Reference Range Notes UDT Reviewed date:10/15/2024 03:06:26 PM Interpretation: Performing Lab: Notes/Report: Amphetamine (AMP) N 0 - 1000 ng/ml Buprenorphine (BUP) N 0 - 10 ng/ml Oxazepam (BZO) P 0 - 300 ng/ml Cocaine (REED) N 0 - 300 ng/ml Methamphetamine (mAMP) N 0 - 300 ng/ml Methylenedioxymethamphetamine (MDMA) N 0 - 500 ng/ml Morphine (MOP) N 0 - 25 ng/ml Methadone (MTD) N 0 - 300 ng/ml Oxycodone (OXY) N 0 - 300 ng/ml THC N 0 - 50 ng/ml x N 0 - 1000 ng/ml x N 0 - 1000 ng/ml x N 0 - 300 ng/ml x N 0 - 300 ng/ml x N 0 - 300 ng/ml UDT Reviewed date:06/26/2025 02:29:30 PM Interpretation: Performing Lab: Notes/Report: Amphetamine (AMP) n 0 - 1000 ng/ml Buprenorphine (BUP) n 0 - 10 ng/ml Oxazepam (BZO) n 0 - 300 ng/ml Cocaine (REED) n 0 - 300 ng/ml Methamphetamine (mAMP) n 0 - 300 ng/ml Methylenedioxymethamphetamine (MDMA) n 0 - 500 ng/ml Morphine (MOP) n 0 - 25 ng/ml Methadone (MTD) n 0 - 300 ng/ml Oxycodone (OXY) n 0 - 300 ng/ml THC n 0 - 50 ng/ml x n 0 - 1000 ng/ml x n 0 - 1000 ng/ml x n 0 - 300 ng/ml x n 0 - 300 ng/ml x n 0 - 300 ng/ml UDT Reviewed date:03/26/2025 11:34:57 AM Interpretation: Performing Lab: Notes/Report: Amphetamine (AMP) N 0 - 1000 ng/ml Buprenorphine (BUP) N 0 - 10 ng/ml Oxazepam (BZO) P 0 - 300 ng/ml Cocaine (REED) N 0 - 300 ng/ml Methamphetamine (mAMP) N 0 - 300 ng/ml Methylenedioxymethamphetamine (MDMA) N 0 - 500 ng/ml Morphine (MOP) N 0 - 25 ng/ml Methadone (MTD) N 0 - 300 ng/ml Oxycodone (OXY) N 0 - 300 ng/ml THC N 0 - 50 ng/ml x N 0 - 1000 ng/ml x N 0 - 1000 ng/ml x N 0 - 300 ng/ml x N 0 - 300 ng/ml Reason For Referral No Information Medications Medication SIG (Take, Route, Frequency, Duration) Notes Start Date End Date Status Sunosi 150 MG Tablet 1 tablet in the morning Orally Once a day; Duration: 14 days sample given for two weeks 06/27/2025 Active Testosterone 20.25 MG/ACT (1.62%) Gel PLEASE SEE ATTACHED FOR DETAILED DIRECTIONS Transdermal; Duration: 28 Days Not-Taking Venlafaxine HCl ER 150 MG Capsule Extended Release 24 Hour TAKE ONE CAPSULE BY MOUTH EVERY MORNING; Duration: 90 Active ALPRAZolam 0.5 MG Tablet 1 tablet Oral once a day; Duration: 30 days As needed save to his profile, if refill is too early 06/26/2025 Active [place] Carbonate ER 300 MG Tablet Extended Release 1 tablet at bedtime Oral Once a day; Duration: 90 days save to his profile, if refill is too early 06/26/2025 Active Rexulti 2 MG Tablet 1 tablet Oral Once a day; Duration: 90 days save to his profile, if refill is too early 06/26/2025 Active Venlafaxine HCl ER 150 MG Capsule Extended Release 24 Hour 1 capsule every motning Oral Once a day; Duration: 90 days save to his profile, if refill is too early 06/26/2025 Active Atorvastatin Calcium 40 MG Tablet Oral; Duration: 30 Days Active Losartan Potassium 50 MG Tablet Oral; Duration: 30 Days Not-Taking Mounjaro 7.5 MG/0.5ML Solution Pen-injector Subcutaneous; Duration: 28 Days Not-Taking Vitamin D (Ergocalciferol) 1.25 MG (73003 UT) Capsule Oral; Duration: 28 Days Not-Taking Armodafinil 250 MG Tablet 1 tablet in the morning Orally Once a day; Duration: 90 days 06/26/2025 Active Zolpidem Tartrate ER 12.5 MG Tablet Extended Release 1 tablet at bedtime Oral Once a day; Duration: 30 days save to his profile, if refill is too early 06/26/2025 09/24/2025 Active Immunizations Vaccine Route Administration Date Status [...] 08/23/2004 Administered MMR Unknown 08/23/2004 Administered Novel [id number], preservative free Unknown 05/25/2019 Administered OPV Unknown [...] decision-maker Yes Do you have Power of Commercial Reporter for Health or [facility]? No Drug/Alcohol: Social Info Question Answer Notes [...] Severe recurrent major depression without psychotic features (49155142) Major depressive disorder, recurrent severe without psychotic features (F33.2) 2023 Active confirmed Problem Generalized anxiety disorder (84201699) Generalized anxiety disorder (F41.1) 2023 Active confirmed Problem Obstructive sleep apnea syndrome (disorder) (22165296) Obstructive sleep apnea (adult) (pediatric) (G47.33) 2023 Active confirmed Problem Primary hypertension (87917487) Primary hypertension (I10) 2023 Active confirmed Problem Obstructive sleep apnea (18667030) Obstructive sleep apnea (G47.33) 2023 Active confirmed Problem Hyperlipidemia (12781262) Hyperlipidemia (E78.5) 2023 Active confirmed Problem Hypercholesterolemia (87595319) Hypercholesterolemia (E78.00) 2021 Active confirmed Problem Type II diabetes mellitus without complication (050065039) Type 2 diabetes mellitus without complication, without long-term current use of insulin ([facility]) (E11.9) 2023 Active confirmed Vital Signs Heart Rate 76 /min 06/26/2025 Height-cm 182.88 cm 06/26/2025 Blood pressure diastolic 80 mm Hg 06/26/2025 Weight-kg 117.03 kg 06/26/2025 Height 72.00 in 06/26/2025 Blood pressure systolic 116 mm Hg 06/26/2025 Weight 258 lbs 06/26/2025 BMI 34.99 kg/m2 06/26/2025 Encounters Encounter Location Date Provider Diagnosis [facility] [address] [address] 10/15/2024 Nima January Major depressive disorder, recurrent severe without psychotic features F33.2 ; Primary hypertension I10 ; Generalized anxiety disorder F41.1 and Obstructive sleep apnea (adult) (pediatric) G47.33 [facility] [address] [place] [address] [address] 01/09/2025 Nima January Major depressive disorder, recurrent severe without psychotic features F33.2 ; Primary hypertension I10 ; Generalized anxiety disorder F41.1 ; Obstructive sleep apnea (adult) (pediatric) G47.33 ; Encounter for screening for depression Z13.31 and Encounter for screening for cardiovascular disorders Z13.6 [facility] [address] [address] 03/26/2025 Nima January Major depressive disorder, recurrent severe without psychotic features F33.2 ; Primary hypertension I10 ; Generalized anxiety disorder F41.1 ; Obstructive sleep apnea (adult) (pediatric) G47.33 ; Encounter for screening for cardiovascular disorders Z13.6 and Encounter for screening for depression Z13.31 [place] [address] [facility] [address] [place] [address] 06/26/2025 Nima January Major depressive disorder, recurrent severe without psychotic features F33.2 ; Primary hypertension I10 ; Generalized anxiety disorder F41.1 and Obstructive sleep apnea (adult) (pediatric) G47.33 [place] [address] [facility] [address] [facility] [address] [place] [address] 09/02/2024 Nima January Obstructive sleep ap angelika (adult) (pediatric) G47.33 [place] [address] [facility] [address] [place] [address] 12/08/2024 Nima January [place] [address] [facility] [address] [place] [address] 12/08/2024 Nima January Obstructive sleep ap angelika (adult) (pediatric) G47.[address] [address] 05/14/2025 Nima January Obstructive sleep ap angelika (adult) (pediatric) G47.33 [place] [address] [address] 05/15/2025 Nima January Obstructive sleep ap angelika (adult) (pediatric) G47.[address] [address] 06/06/2025 Nima January Obstructive sleep ap angelika (adult) (pediatric) G47.33 [place] [address] [facility] [address] [address] 07/10/2025 Nima January [place] [address] [facility] [address] [place] [address] 07/11/2025 Nima January Assessments Encounter Date Diagnosis (ICD Code) Assessment Notes Treatment Notes Treatment Clinical Notes Section Notes 09/02/2024 Obstructive sleep apnea (adult) (pediatric) (ICD-10 - G47.33) 03/26/2025 Primary hypertension (ICD-10 - I10) 01/09/2025 Major depressive disorder, recurrent severe without psychotic features (ICD-10 - F33.2) 05/15/2025 Obstructive sleep apnea (adult) (pediatric) (ICD-10 - G47.33) 10/15/2024 Major depressive disorder, recurrent severe without psychotic features (ICD-10 - F33.2) 10/15/2024 Primary hypertension (ICD-10 - I10) 05/14/2025 Obstructive sleep apnea (adult) (pediatric) (ICD-10 - G47.33) 06/26/2025 Major depressive disorder, recurrent severe without psychotic features (ICD-10 - F33.2) Mood improvement reported, with decreased depression. Ongoing management with psychiatric medications. Patient finds work meaningful and receives positive feedback from boss. - Refilled prescriptions for zolpidem, Xanax, lithium, Rexulti, and venlafaxine. - Sent new prescriptions to pharmacy with instructions for pharmacist to add to profile if refill is too early. 06/26/2025 Primary hypertension (ICD-10 - I10) 06/06/2025 Obstructive sleep apnea (adult) (pediatric) (ICD-10 - G47.33) 03/26/2025 Major depressive disorder, recurrent severe without psychotic features (ICD-10 - F33.2) Patient feels okay psychiatrically but struggles with social interactions. Patient considers activities like gardening and spending time with family as antidepressant activities. - Continue current medications for depression. - Consider finding hobbies and social outlets to improve mood. 01/09/2025 Primary hypertension (ICD-10 - I10) 12/08/2024 Obstructive sleep apnea (adult) (pediatric) (ICD-10 - G47.33) 03/26/2025 Generalized anxiety disorder (ICD-10 - F41.1) 06/26/2025 Generalized anxiety disorder (ICD-10 - F41.1) 10/15/2024 Generalized anxiety disorder (ICD-10 - F41.1) 01/09/2025 Generalized anxiety disorder (ICD-10 - F41.1) 01/09/2025 Obstructive sleep apnea (adult) (pediatric) (ICD-10 - G47.33) 10/15/2024 Obstructive sleep apnea (adult) (pediatric) (ICD-10 - G47.33) 06/26/2025 Obstructive sleep apnea (adult) (pediatric) (ICD-10 - G47.33) Electronic Prior Authorization was requested for Sunosi 150 MG Tablet. Provider can order medication once approval received. Persistent sleep disturbance with early childhood educator aide awakenings and fragmented sleep. CPAP intolerance with dry mouth despite mask change and humidifier adjustments. Sleep doctor involved in management; alternative medications discussed. Patient hesitant to try Xyrem due to work schedule and medication logistics. - Increased armodafinil dose from 75 mg to 150 mg. - Offered two-week sample of armodafinil 150 mg for trial. - Pending prior authorization for armodafinil prescription. - Discussed alternative medications (e.g., Snowy) for sleep apnea management. 03/26/2025 Obstructive sleep apnea (adult) (pediatric) (ICD-10 [...] and stress due to family issues, including mbuppqj-wp-ciw's health crisis and financial burden. - Plan: [...] situation. Mood Stabilization - Plan: - Continue Christopher Creek ER 300 mg in the morning and [...] expected due to significant calorie reduction (from 9895-1429 to 500-700 calories daily). Next follow-up with [...] ensure accuracy, there may be errors, including pneumatic jacketer inaccuracies and misspellings of medication names. This document should not be considered a verbatim record, and any discrepancies should be verified with the provider. 03/26/2025 Other Imported from [facility]: <thead><tr><th style=width:400 px>Attribute Name (Date Range)</th> <th>Value Range</th> <th>Latest Finding</th> <th>Reference Range</th> </tr> </thead> <tbody> <!-- Critical Lab Results First --> <tr> <td style=width:400 px><span iiqdy=rv002>Ch loride</span> (11/07/2024 - 11/27/2024)</td> <td>103 mmol/L to <span zmurk=og320>11 2 mmol/L (H)</span></td> <td><span dinwl=fa077>11 2 mmol/L (H)</span></td> <td>97 mmol/L - 110 mmol/L</td> </tr> <tr> <td style=width:400 px><span ixpyx=lq037>Ca lcium</span> (11/07/2024 - 11/28/2024)</td> <td>7.4 mg/dL to 9.7 mg/dL</td> <td><span xpfya=dl453>8 mg/dL (L)</span></td> <td>8.5 mg/dL - 10.3 mg/dL</td> </tr> <tr> <td style=width:400 px><span ncgmf=fw086>Hg b</span> (11/07/2024 - 11/27/2024)</td> <td>11.8 g/dL to 14.6 g/dL</td> <td><span veolc=rx112>11 .8 g/dL (L)</span></td> <td>13.0 g/dL - 17.5 g/dL</td> </tr> <tr> <td style=width:400 px><span roshe=uz428>RB C</span> (11/07/2024 - 11/27/2024)</td> <td>3.7 to 4.63</td> <td><span wahnb=zp022>3. 7 (L)</span></td> <td>4.0 - 5.5</td> </tr> <tr> <td style=width:400 px><span gwzbm=oh214>Hc t</span> (11/07/2024 - 11/27/2024)</td> <td>34.6% to 43.8%</td> <td><span ctcxb=ye985>34 .6% (L)</span></td> <td>38.9% - 50.3%</td> </tr> <tr> <td style=width:400 px><span lgzsa=sr440>WB C</span> (11/07/2024 - 11/27/2024)</td> <td>9.5 to <span ftnwe=ad002>13 .6 (H)</span></td> <td><span ufogl=cd394>10 .6 (H)</span></td> <td>4.0 - 11.0</td> </tr> <tr> <td style=width:400 px><span mbomg=on387>Hg b A1C</span> (11/07/2024)</td > <td><span twzlt=vt095>5. 8% (H)</span></td> <td><span ropds=hg687>5. 8% (H)</span></td> <td>4.0% - 5.6%</td> </tr> <!-- Other Lab Results --> <tr> <td style=width:400 px>Creatinine (11/07/2024 - 11/28/2024)</td> <td>0.97 mg/dL to 1.11 mg/dL</td> <td>1.11 mg/dL</td> <td>0.80 mg/dL - 1.30 mg/dL</td> </tr> <tr> <td style=width:400 px>Glucose (11/07/2024 - 11/28/2024)</td> <td>79 mg/dL to 113 mg/dL</td> <td>79 mg/dL</td> <td>70 mg/dL - 199 mg/dL</td> </tr> <tr> <td style=width:400 px>BUN (11/07/2024 - 11/28/2024)</td> <td>12 mg/dL to 19 mg/dL</td> <td>13 mg/dL</td> <td>6 mg/dL - 25 mg/dL</td> </tr> <tr> <td style=width:400 px>Sodium (11/07/2024 - 11/28/2024)</td> <td>140 mmol/L to 144 mmol/L</td> <td>142 mmol/L</td> <td>135 mmol/L - 145 mmol/L</td> </tr> <tr> <td style=width:400 px>CO2 (11/07/2024 - 11/28/2024)</td> <td>26 mmol/L</td> <td>26 mmol/L</td> <td>22 mmol/L - 32 mmol/L</td> </tr> <tr> <td style=width:400 px>Potassium, pl (11/07/2024 - 11/28/2024)</td> <td>4.1 mmol/L to 4.3 mmol/L</td> <td>4.3 mmol/L</td> <td>3.3 mmol/L - 4.9 mmol/L</td> </tr> <tr> <td style=width:400 px>Anion gap (11/07/2024 - 11/28/2024)</td> <td>6 mmol/L to 12 mmol/L</td> <td>8 mmol/L</td> <td>2 mmol/L - 15 mmol/L</td> </tr> <tr> <td style=width:400 px>RDW CV (11/07/2024 - 11/27/2024)</td> <td>13.1% to 13.3%</td> <td>13.3%</td> <td>11.1% - 14.9%</td> </tr> <tr> <td style=width:400 px>MPV (11/07/2024 - 11/27/2024)</td> <td>9.8 fL to 10.2 fL</td> <td>9.8 fL</td> <td>9.1 fL - 12.3 fL</td> </tr> <tr> <td style=width:400 px>MCV (11/07/2024 - 11/27/2024)</td> <td>92.5 fL to 94.6 fL</td> <td>93.5 fL</td> <td>81.3 fL - 96.4 fL</td> </tr> <tr> <td style=width:400 px>eGFR (11/07/2024 - 11/28/2024)</td> <td>82 to 83</td> <td>82</td> <td>90 - 120</td> </tr> <tr> <td style=width:400 px>Glucose, POC (11/27/2024 - 11/28/2024)</td> <td>80 mg/dL to 106 mg/dL</td> <td>92 mg/dL</td> <td>70 mg/dL - 199 mg/dL</td></tr>< /tbody> Plan Of Treatment Next Appt Details Provider Name:Nima Sin , 09/25/2025 01:00:00 PM, [address] [facility] [address] [facility], [address], [address], Insurance Providers Payer Name Payer Address Payer Phone Subscriber Number Group Number Insured Name Patient Relationship to Insured Coverage Start Date Coverage End Date [employer] [address] [place] [address] [id number] FILOMENA GUZMAN Self - patient is the insured Medical (General) History Medical History History ICD Code Problems: Body mass index 40+ - severely obese Chronic post-traumatic stress disorder Generalized anxiety disorder Obstructive sleep apnea syndrome Severe recurrent major depression withou t psychotic features , Surgical History Surgery Date(Month/Year) Sinus surgery 09/24/1989 Tonsilectomy/adenoids 09/24/1989 Colonoscopy with biopsy ([id number]) 12/26/19 19 gastric bypass 2024 Hospitalization History Reason Date(Month/Year) gastric by pass 2024
--- OUTSIDE RECORDS SUMMARY | 2025-07-14 19:46 | XMS_ITS | Clinical Summary ---
Author Organization [facility] Address [address] [place] [address] Care Team Providers Care Power Superintendent Name Role Phone Trey Rubio MD Primary [...] CDT Gender Identity Male 10/28/2021 4:32 AM WOOD MACHINIST Sexual Orientation Chauhan 10/28/2021 4: 32 AM WOOD MACHINIST Last Filed Vital Signs Vital Sign Reading Time Taken Comments Blood Pressure 137/77 02/01/2022 1:46 PM CDT Pulse 91 02/01/2022 1:46 PM CDT Temperature 36.7 C (98.1 F) 02/01/2022 1:46 PM CDT Respiratory Rate 16 10/28/2021 8:35 AM WOOD MACHINIST Oxygen Saturation 98% 02/01/2022 1:46 PM CDT Inhaled Oxygen Concentration - - Weight 147.4 kg (325 lb) 02/01/2022 1:46 PM CDT Height 175.3 cm (5' 9) 10/28/2021 8:35 AM WOOD MACHINIST Body Mass Index 47.99 10/28/2021 8:35 AM WOOD MACHINIST Plan of Treatment Health Maintenance Due Date Last Done Comments Colorectal Cancer Screening Colonoscopy (10 Years) 1976 Annual Physical 11/24/1979 Hepatitis C 1994 DTaP, Tdap and Td Vaccines (6 - Tdap) 02/03/1995 02/02/1995, 02/26/1989, 01/31/1982, Additional history exists Hepatitis B Vaccines (1 of 3 - 19+ 3-dose series) 11/24/1995 03/20/2000 COVID-19 Vaccine ( season) 2025 07/09/2021, 10/21/2020, 09/26/2020 Influenza Adult (#1) 2025 06/21/2020, 05/25/2019, 06/26/2016 Hepatitis A Vaccines Aged Out No long er eligible based on patient's age to complete this topic Meningococcal B Vaccine Aged Out No l [...] complete this topic Insurance [employer] Care Teams Power Superintendent Relationship Specialty Start Date End Date Trey Rubio MD PCP - General FAMILY PRACTICE 10/07/21
--- OUTSIDE RECORDS SUMMARY | 2025-07-14 19:46 | XMS_ITS | Clinical Summary ---
Author Organization [facility] Address [address] [place] [address] Care Team Providers Care Match Marker Name Role Phone ChristianParvez cintron ELISA Primary Care Provider [phone] Allergies Active Allergy Reactions Criticality Noted Date [...] Description 04/24/2025 10:45 AM CDT Office Visit [address] [address] Ervin Nowak MD Obstructive sleep apnea (Primary Dx) 04/15/[address] [place] [address] Ervin Nowak MD 04/14/2025 10:00 AM CDT Telemedicine [facility] [address] [place] [address] Medical Office Building [address] [place] [address] Arash Bass NP Bariatric surgery [...] D deficiency Abnormal ECG 04/2023 Diabetes mellitus 04/2023 Kidney stone CHF (congestive heart failure) (HCC) Awareness under anesthesia recal ls waking up [...] on file Legal Sex Male 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 Gender Identity Not on file Sexual Orientation Not on file Obstetrics History Last Filed Vital Signs Vital Sign Reading Time Taken Comments Blood Pressure 126/80 04/24/2025 10:36 AM CDT Pulse 76 04/24/2025 10:36 AM CDT Temperature 36.6 C (97.8 F) 12/03/2024 8:35 AM CDT Respiratory Rate 20 11/28/2024 12:40 PM INSTALLER TECHNICIAN Oxygen Saturation 98% 04/24/2025 10:36 AM CDT [...] Completed 03/20/2000 Medical Devices Implanted Type Area Hair Colorist Device Identifier Shelf Expiration Date Model / Serial / Lot [employer] Biological Bariatric Peristrip Non Crosslinked Bovine Pericardium For Endo Breann Thin [id number] - Sn/A - [id number] Implanted:Qty: 1 on 11/27/2024 by Candelario Roberts MD at [facility] Other - see comments N/A: Abdomen [employer] [id number] 02/08/2026 [id number] ATHN / N/A / [id number] Description:Tashia-strips dry staple line reinforcement [employer] Bariatric Peristrip Non Crosslinked Bovine Pericardium For Endo Breann Thin [id number] - Sn/A - [id number] Implanted:Qty: 1 on 11/27/2024 by Candelario Roberts MD at [facility] Other - see comments N/A: Abdomen [employer] [id number] 02/08/2026 [id number] ATHN / N/A / [id number] Description:Tashia-strips dry staple line reinforcement Procedures Procedure Name Priority Date/Time Associated Diagnosis Comments EGFR STAT 11/27/2024 6:08 PM INSTALLER TECHNICIAN HEMOGLOBIN A1C Routine 11/07/2024 3:22 PM INSTALLER TECHNICIAN Preoperative testing from Last 3 Months or Most Recently Relevant to Health Maintenance Results * eGFR (11/27/2024 6:08 PM INSTALLER TECHNICIAN) eGFR 83 >=60 mL/min/1. 73 m2 Comment: [...] last reviewed 2021. Blood 11/27/2024 6:08 PM INSTALLER TECHNICIAN 11/27/2024 6:24 PM INSTALLER TECHNICIAN us Candelario Roberts MD LAB BLOOD ORDERABLES [facility] Department [place] [address] * (ABNORMAL) Hemoglobin A1c (11/07/2024 3:22 PM INSTALLER TECHNICIAN) Hgb A1C 5.8(H) 4.0 - 5.6 % Estimated Average Glucose 120 mg/dL [facility] Comment: The ADA recommends reporting an estimated Average Glucose (eAG) with all Hemoglobin A1c results using the equation derived from a study of 507 normal and diabetic adults. Minority populations were underrepresented and children were not included. (Diabetes Care 31:9561-8551, 2008). The eAG is not equivalent to a fasting glucose. Blood 11/07/2024 3:22 PM INSTALLER TECHNICIAN 11/07/2024 4:10 PM INSTALLER TECHNICIAN us Kavita Mcleod NP LAB BLOOD ORDERABLES Fin al Result Performing Organization Address City/State/[facility] Phone Number [facility] [address] [facility]. Department [place] [address] from Last 3 Months or Most Recently Relevant to Health Maintenance Insurance [facility] [employer] [facility] HMO/PPO Address: [address] [address] [place] [address] [facility] Advance Directives For more information, please contact: [phone] * Full Code (Latest Code Status on File) Date Activated Date Inactivated Comments 11/27/2024 4:19 PM 11/28/2024 6:43 PM Care Teams Match Marker Relationship Specialty Start Date End Date Parvez Christian NP [address] [place] [address] PCP - General Family Medicine 11/28/24
--- OUTSIDE RECORDS SUMMARY | 2025-07-14 19:46 | XMS_ITS | Encounter Summary ---
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
--- OUTSIDE RECORDS SUMMARY | 2025-07-14 19:47 | XMS_ITS | Clinical Summary ---
Author Organization [facility] Address [address] [place] [address] Phone Care Team Providers Care Dust Mill Operator Name Role Phone Padma Cantrell MD Primary Care Provider [phone] Allergies No known active allergies Medications ibuprofen [...] Advance Directives For more information, please contact: [phone] * Full Code (Latest Code Status on File) Date Activated Date Inactivated Comments 01/18/2015 9:22 PM 01/24/2015 11:23 PM * Full Code Date Activated Date Inactivated Comments 12/14/2014 12:19 AM 12/18/2014 4:30 PM * Full Code Date Activated Date Inactivated Comments 12/12/2014 6:52 PM 12/14/2014 12:19 AM Care Teams Dust Mill Operator Relationship Specialty Start Date End Date Padma Cantrell MD [address] [place] [phone] PCP - General Surgery 12/12/14
--- OUTSIDE RECORDS SUMMARY | 2025-07-14 19:47 | XMS_ITS | Patient Health Record ---
Author Organization [facility] Address [address] [place], [place] [id number] Care Team Providers Care Laborer [place] Name Role Phone FLORENCE KEITH Unavailable [phone] Padma Cantrell Unavailable Unavailable Reason For Referral No Information Medications Medication SIG (Take, Route, Frequency, Duration) Notes Start Date End Date Status Ibuprofen 800 MG Oral Tablet ORAL ibuprofen 800 MG Oral TabletOriginal Medicationibuprofen 800 MG Oral Tablet *Reorder from [employer] for eRx and Interaction Alerts* 10/09/2014 Active Plan Of Treatment No Information Insurance Providers Payer Name Payer Address Payer Phone Subscriber Number Group Number Insured Name Patient Relationship to Insured Coverage Start Date Coverage End Date [employer] [address] JERMAINE MORALEZ [phone] [id number] FILOMENA GUZMAN Self - patient is the insured
== END 2025-07-14 16:24 | disposition home or self-care (01) ==
LOC: CHSIMG 16:24
PROVIDERS: PCP Nurse Practitioner Family; Visit Provider Nurse Practitioner Family
DX: M54.50 Low back pain, unspecified (principal)
CPT/HCPCS: 72100

== ENCOUNTER 2025-07-27 10:56 | Outpatient (RCR) | payer BC, SELFPAY ==
--- NOTE | 2025-08-03 08:21 | OPREHPOC ---
Outpatient Therapy Plan of Care This is a Multidisciplinary Plan of Care that may contain components documented by all disciplines (PT, OT, and ST.) PT Problem 1 PT Problem #1 Knowledge Deficit PT Goal 1 Goal / Goal Update independent and compliant with HEP Target Visit 4 PT Problem 2 PT Problem #2 Pain PT Goal 1 Goal / Goal Update patient to report no more than 2/10 pain in the lower back Target Visit 8 PT Problem 3 PT Problem #3 Impaired Range of Motion PT Goal 1 Goal / Goal Update 100% active lumbar rom without pain Target Visit 8 PT Problem 4 PT Problem #4 Impaired Strength PT Goal 1 Goal / Goal Update 4+/5 or better overall bilateral hip strength 4/5 or better overall core strength Target Visit 8 PT Problem 5 PT Problem #5 Impaired Functional Mobility PT Goal 1 Goal / Goal Update patient to display improve standing posture with retracted shoulders patient to display 5% or less functional deficits per the oswestry Target Visit 8
--- NOTE | 2025-08-03 08:21 | PTOPEVAL1 ---
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 he reports he has pain in the lower back. he reports he was told his core is weak. he reports he came to PT once several years ago, but lost his exercises. he reports he is unsure what flares up the pain, and reports it hurts all the time. he reports it does not go down the legs. he reports he did have xrays. Reported Pain Level Pain Score 2: Self Report Assessment PT Clinical Summary mr. anderson presents to skilled PT services for evaluation and treatment of lower back pain. he displays core weakness, decreased lumbar rom, LE weakness, and decreased functional activity performance. patient would benefit from continued skilled PT to address his objective/functional deficits and return to prior level functional activity performance/quality of life. Plan of Care Interventions Electrical Stimulation,Gait Training,Hot Pack/Cold Pack,Manual Therapy,Neuro Re-education,Patient/ Caregiver Education,Therapeutic Activities, Therapeutic Exercise PT Services Indicated Yes Treatment Frequency and 2x weekly for 8 visits Duration These treatments will address the objective and functional deficits as defined above. The patient will be advanced safely and appropriately in order for the patient to progress towards his/her prior level of function. Additional exercises will be introduced and as well as a comprehensive home exercise program upon discharge, if needed, ?to ensure carryover of functional gains achieved in the clinic. This treatment plan has been reviewed and agreement upon by the patient.
== END 2025-08-10 20:00 | disposition home or self-care (01) ==
LOC: CHSPT 10:56
PROVIDERS: PCP Family Medicine; Visit Provider Nurse Practitioner Family
DX: M54.50 Low back pain, unspecified (principal)
CPT/HCPCS: 97014; 97110; 97112; 97161; G0283